=== PATIENT | male | born 1960 | race Caucasian/White ===

== ENCOUNTER 2017-05-11 23:34 | Inpatient (IN) | payer MEDICARE, MEDICAID ==
[2017-05-12 00:22] LABS: URINE MICROSCOPIC INDICATED? YES; URINE SOURCE CLEAN C
[2017-05-12 00:25] LABS: % BASOPHILS 1.1 % (0.0-2.0); % EOSINOPHILS 0.1 % (0.0-5.0); % LYMPHOCYTES 34.1 % (20.0-50.0); % MONOCYTES 6.8 % (2.0-10.0); % NEUTROPHILS 57.9 % (40.0-80.0); BASOPHILE ABSOLUTE 0.1 Th/cumm (0-0.2); HEMATOCRIT 44.8 % (41.0-60); HEMOGLOBIN 14.9 gm/dL (12-16); MEAN CELL VOLUME 93.8 fl (80-99); MEAN CORPUSCULAR HEMOGLOBIN 31.1 pg (26.0-30.0); MEAN CORPUSCULAR HGB CONC 33.2 pg (28.0-36.0); MEAN PLATELET VOLUME 6.3 fl; MONOCYTE ABSOLUTE 0.6 Th/cmm (0.3-1.0); NEUTROPHILE ABSOLUTE 5.1 Th/cmm (1.8-8.0); RED BLOOD COUNT 4.77 Mil/cmm (4.30-5.70); RED CELL DISTRIBUTION WIDTH 12.8 % (11.5-20.0); URINE BILIRUBIN NEGATIVE (NEGATIVE); URINE BLOOD TRACE (NEGATIVE); URINE GLUCOSE (UA) NEGATIVE (NEGATIVE); URINE KETONE NEGATIVE (NEGATIVE); URINE LEUKOCYTE ESTERASE NEGATIVE (NEGATIVE); URINE NITRATE NEGATIVE (NEGATIVE); URINE PH 7.5 (4.6 - 8.0); URINE PROTEIN NEGATIVE (NEGATIVE); URINE UROBILINOGEN 0.2 E.U./dL (0.2 - 1.0); WHITE BLOOD COUNT 8.8 Th/cmm (4.8-10.8)
[2017-05-12 00:30] LABS: PLATELET COUNT 297 Th/cmm (150-400); URINE CLARITY CLEAR (CLEAR); URINE COLOR YELLOW
[2017-05-12 00:37] LABS: AMPHETAMINE URINE NEGATIVE (NEGATIVE); BARBITURATES URINE NEGATIVE (NEGATIVE); BENZODIAZEPINES QUAL URINE NEGATIVE (NEGATIVE); CANNABINOID THC NEGATIVE (NEGATIVE); COCAINE METABOLITE QUAL URINE NEGATIVE (NEGATIVE); METHADONE URINE NEGATIVE (NEGATIVE); METHAMPHETAMINES QUAL URINE NEGATIVE (NEGATIVE); OPIATES (MORPHINE) QUAL. URINE NEGATIVE (NEGATIVE); PHENCYCLIDINE (PCP) URINE NEGATIVE (NEGATIVE); TRICYCLICS (TCA) QUAL. URINE NEGATIVE (NEGATIVE)
[2017-05-12 00:39] LABS: URINE BACTERIA OCCASIONAL /hpf (NONE SEEN); URINE EPITHELIAL CELLS OCCASIONAL /lpf (FEW); URINE WBC 0-2 /hpf (0-5)
[2017-05-12 00:43] LABS: ACETAMINOPHEN < 10.0 ug/mL (10.0-30.0); ALB/GLOB RATIO 1.1 (1.0-1.8); ALBUMIN 3.6 gm/dL (4.2-5.5); ALKALINE PHOSPHATASE 81 U/L (34-104); ANION GAP 10.4 (7.0-16.0); BILIRUBIN,TOTAL 0.2 mg/dL (0.3-1.0); BUN - UREA NITROGEN 9 mg/dL (7-25); CALCIUM SERUM 9.5 mg/dL (8.6-10.3); CARBON DIOXIDE 30.3 mEq/L (21.0-31.0); CHLORIDE 96 mEq/L (98-107); CHOLESTEROL 133 mg/dL (<200); CREATININE - SERUM 0.6 mg/dL (0.7-1.3); GFR AFRICAN-AMERICAN > 60.0 ml/min (>90); GFR NON AFRICAN-AMERICAN > 60.0 ml/min; GLUCOSE 124 mg/dL (70-105); HDL -HIGH DENSITY LIPOPROTEIN 57 mg/dL (23-92); POTASSIUM SERUM 4.7 mEq/L (3.5-5.1); SGOT 13 U/L (13-39); SGPT/ALT 15 U/L (7-52); SODIUM SERUM 132 mEq/L (136-145); TOTAL PROTEIN,SERUM 6.8 gm/dL (6.0-8.3); TRIGLYCERIDES 106 mg/dL (<150)
[2017-05-12 00:45] LABS: SALICYLATES (ASPIRIN) < 25.0 mg/L (30.0-100.0)
--- NOTE | 2017-05-12 01:48 | ED Physician Chart ---
ED Chief Complaint/HPI - Patient Information Date Seen:: 05/11/17 Time Seen:: 23:30 Chief Complaint:: Agitation History of Present Illness:: onset x 2 days of agitation and aggressive behavior; no report of SIs, H/As, neck pain, C/P, SOB, Abd. Pain, A/N/V/D/C, fever, chills, or urinary s/s Allergies:: Allergies Allergy/AdvReac Type Severity Reaction Status Date / Time No Known Allergies Allergy Verified 05/12/17 00:06 Vitals:: Vital Signs - 8 hr 05/11/17 23:35 Temp 97.9 F HR 79 RR 18 BP 121/76 O2 Sat % 94 Historian:: Patient, EMS Review:: Nurse's Note Reviewed, EMS run form Reviewed ED Review of Systems - Review of Systems General/Constitutional: No fever, No chills, No weight loss, No weakness, No diaphoresis, No edema, No loss of appetite Skin: No skin lesions, No rash, No bruising Head: No headache, No light-headedness Eyes: No loss of vision, No pain, No diplopia ENT: No earache, No nasal drainage, No sore throat, No tinnitus Neck: No neck pain, No swelling, No thyromegaly, No stiffness, No mass noted Cardio Vascular: No chest pain, No palpitations, No PND, No orthopnea, No edema Pulmonary: No SOB, No cough, No sputum, No wheezing GI: No nausea, No vomiting, No diarrhea, No pain, No melena, No hematochezia, No constipation, No hematemesis G/U: No dysuria, No frequency, No hematuria, No nacturia Musculoskeletal: No bone or joint pain, No back pain, No muscle pain Endocrine: No polyuria, No polydipsia Psychiatric: Prior psych history, No depression, Anxiety, No suicidal ideation, No homicidal ideation, Auditory hallucination, No visual hallucination Hematopoietic: No bruising, No lymphadenopathy Allergic/Immuno: No urticaria, No angioedema Neurological: No syncope, No focal symptoms, No weakness, No paresthesia, No headache, Seizure, No dizziness, No confusion, No vertigo ED Past Medical History - Past Medical History Obtainable: Yes Past Medical History: HTN, Seizures Family History: HTN Social History: Non Smoker, No Alcohol, No Drug Use, Single, Care Facility Surgical History: None Psychiatricy History: Schizophrenia, Bipolar Medication: Reviewed Family Medical History - Family Member Mother History Unknown: Yes ED Physical Exam - Physical Examination General/Constitutional: Awake, Well-developed, well-nourished, Alert, No distress, GCS 15, Non-toxic appearing, Ambulatory Head: Atraumatic Eyes: Lids, conjuctiva normal, PERRL, EOMI Skin: Nl inspection, No rash, No skin lesions, No ecchymosis, Well hydrated, No lymphadenopathy ENMT: External ears, nose nl, TM canals nl, Nasal exam nl, Lips, teeth, gums nl , Oropharynx nl, Tonsils nl Neck: Nontender, Full ROM w/o pain, No JVD, No nuchal rigidity, No bruit, No mass, No stridor Respiratory: Nl effort/Exclusion, Clear to Auscultation, No Wheeze/Rhonchi/Rales Cardio Vascular: RRR, No murmur, gallop, rubs, NL S1 S2, Carotid/Femoral/Distal pulses equal bilaterally GI: No tenderness/rebounding/guarding, No organomegaly, No hernia, Normal BS's, Nondistended, No mass/bruits, No McBurney tenderness : No CVA tenderness Extremities: No tenderness or effusion, Full ROM, normal strength in all extremities, No edema, Normal digits & nails Neuro/Psych: Alert/oriented, DTR's symmetric, Normal sensory exam, Normal motor strength, Judgement/insight normal, Mood normal, Normal gait, No focal deficits Other Neuro/Psych comments:: + Psychomotor Agitation; no SIs Misc: Normal back, No paraspinal tenderness ED Labs/Radiology/EKG Results - Lab Results Results: Laboratory Tests 05/12/17 05/12/17 05/12/17 00:10 00:10 00:10 WBC 8.8 RBC 4.77 Hgb 14.9 Hct 44.8 MCV 93.8 MCH 31.1 H MCHC Differential 33.2 RDW 12.8 Plt Count 297 D MPV 6.3 Neutrophils % 57.9 Lymphocytes % 34.1 Monocytes % 6.8 Eosinophils % 0.1 Basophils % 1.1 Sodium 132 L Potassium 4.7 Chloride 96 L Carbon Dioxide 30.3 Anion Gap 10.4 BUN 9 Creatinine 0.6 L Est GFR ( Amer) > 60.0 Est GFR (Non-Af Amer) > 60.0 BUN/Creatinine Ratio 15.0 Glucose 124 H Calcium 9.5 Total Bilirubin 0.2 L AST 13 ALT 15 Alkaline Phosphatase 81 Total Protein 6.8 Albumin 3.6 L Globulin 3.2 Albumin/Globulin Ratio 1.1 Triglycerides 106 Cholesterol 133 LDL Cholesterol Direct 82 HDL Cholesterol 57 Urine Source CLEAN C Urine Color YELLOW Urine Clarity CLEAR Urine pH 7.5 Ur Specific [place] <= 1.005 Urine Protein NEGATIVE Urine Glucose (UA) NEGATIVE Urine Ketones NEGATIVE Urine Blood TRACE Urine Nitrate NEGATIVE Urine Bilirubin NEGATIVE Urine Urobilinogen 0.2 Ur Leukocyte Esterase NEGATIVE Urine RBC 2-5 H Urine WBC 0-2 Ur Epithelial Cells OCCASIONAL Urine Bacteria OCCASIONAL Salicylates < 25.0 L Urine Opiates Screen Urine Methadone Screen Acetaminophen < 10.0 L Ur Barbiturates Screen Ur Tricyclics Screen Ur Phencyclidine Scrn Amphetamines Screen U Methamphetamines Scrn U Benzodiazepines Scrn U Cocaine Metab Screen U Cannabinoids Screen Ethyl Alcohol < 10 05/12/17 00:10 WBC RBC Hgb Hct MCV MCH MCHC Differential RDW Plt Count MPV Neutrophils % Lymphocytes % Monocytes % Eosinophils % Basophils % Sodium Potassium Chloride Carbon Dioxide Anion Gap BUN Creatinine Est GFR ( Amer) Est GFR (Non-Af Amer) BUN/Creatinine Ratio Glucose Calcium Total Bilirubin AST ALT Alkaline Phosphatase Total Protein Albumin Globulin Albumin/Globulin Ratio Triglycerides Cholesterol LDL Cholesterol Direct HDL Cholesterol Urine Source Urine Color Urine Clarity Urine pH Ur Specific [place] Urine Protein Urine Glucose (UA) Urine Ketones Urine Blood Urine Nitrate Urine Bilirubin Urine Urobilinogen Ur Leukocyte Esterase Urine RBC Urine WBC Ur Epithelial Cells Urine Bacteria Salicylates Urine Opiates Screen NEGATIVE Urine Methadone Screen NEGATIVE Acetaminophen Ur Barbiturates Screen NEGATIVE Ur Tricyclics Screen NEGATIVE Ur Phencyclidine Scrn NEGATIVE Amphetamines Screen NEGATIVE U Methamphetamines Scrn NEGATIVE U Benzodiazepines Scrn NEGATIVE U Cocaine Metab Screen NEGATIVE U Cannabinoids Screen NEGATIVE Ethyl Alcohol - EKG Interpretations EKG Time:: 00:09 Rate & Rhythm: 85; NSR Comments:: non-specific st-t changes ED Septic Shock - . Is Septic Shock (SBP<90, OR Lactate>4 mmol\L) present?: No - <6hrs of presentation: Vital Signs: Vital Signs - 8 hr 05/11/17 23:35 Temp 97.9 F HR 79 RR 18 BP 121/76 O2 Sat % 94 ED Reassessment (Disposition) - Reassessment Reassessment Condition:: Improved - Diagnosis Diagnosis:: Agitation; Bipolar Disorder; Hyponatremia; Schizophrenia; Epilepsy - Aftercare/Follow up Instructions Aftercare/Follow-Up Instructions:: Counseled pt regarding lab results/diagnosis & need follow up, Counseled pt & family regarding lab results/diagnosis & need follow up - Patient Disposition Discharge/Transfer:: Acute Care w/in this hosp Accepting Physician:: Dr. Busch Time Called:: 119 Time Responded:: 01:20 Admitted to:: Med/Surg Spoke to:: Dr. Busch Admitting Medical Physician:: Dr. Busch Condition at Disposition:: Stable, Improved
[2017-05-12 03:15] VITALS: BP 125/73
[2017-05-12] MEDS ORDERED: Fleet Enema 135 mL RC PRN (06:43)
[2017-05-12] MEDS ORDERED: [UNRECOGNIZED DRUG - OTHER] PO PRN (06:43)
[2017-05-12] MEDS ORDERED: Maalox 30 mL Cup PO PRN (06:43)
[2017-05-12] MEDS ORDERED: ALUMINUM HYDROXIDE PO PRN (06:43)
[2017-05-12] MEDS ORDERED: Aluminum Hydroxide 30 mL UDC PO PRN (08:40)
[2017-05-12] MEDS: risperiDONE 1 mg/mL 30 mL Bottle PO SCH ×2 (09:00→17:38)
[2017-05-12] MEDS ORDERED: Non-Formulary Item 1 EA (Docusate Calcium [Docusate Calcium] 240 MG) PO SCH (09:00)
[2017-05-12] MEDS: Multivitamin Tab PO SCH (11:09)
[2017-05-12] MEDS: Nicotine 21 mg/24 hr Tdm TD SCH (11:09)
[2017-05-13 05:42] LABS: % BASOPHILS 2.8 % (0.0-2.0); % EOSINOPHILS 0.2 % (0.0-5.0); % LYMPHOCYTES 29.2 % (20.0-50.0); % MONOCYTES 7.2 % (2.0-10.0); % NEUTROPHILS 60.6 % (40.0-80.0); BASOPHILE ABSOLUTE 0.3 Th/cumm (0-0.2); HEMATOCRIT 46.5 % (41.0-60); HEMOGLOBIN 15.3 gm/dL (12-16); LYMPHOCYTE ABSOLUTE 2.7 Th/cmm (1.5-3.0); MEAN CELL VOLUME 93.9 fl (80-99); MEAN CORPUSCULAR HEMOGLOBIN 30.9 pg (26.0-30.0); MEAN CORPUSCULAR HGB CONC 32.9 pg (28.0-36.0); MEAN PLATELET VOLUME 6.7 fl; MONOCYTE ABSOLUTE 0.7 Th/cmm (0.3-1.0); NEUTROPHILE ABSOLUTE 5.6 Th/cmm (1.8-8.0); PLATELET COUNT 279 Th/cmm (150-400); RED BLOOD COUNT 4.96 Mil/cmm (4.30-5.70); RED CELL DISTRIBUTION WIDTH 12.9 % (11.5-20.0); WHITE BLOOD COUNT 9.3 Th/cmm (4.8-10.8)
[2017-05-13 06:07] LABS: ALB/GLOB RATIO 1.1 (1.0-1.8); ALBUMIN 3.5 gm/dL (4.2-5.5); ALKALINE PHOSPHATASE 96 U/L (34-104); BILIRUBIN,TOTAL 0.2 mg/dL (0.3-1.0); BUN - UREA NITROGEN 11 mg/dL (7-25); CALCIUM SERUM 9.5 mg/dL (8.6-10.3); CARBON DIOXIDE 29.9 mEq/L (21.0-31.0); CHLORIDE 98 mEq/L (98-107); CREATININE - SERUM 0.8 mg/dL (0.7-1.3); GFR AFRICAN-AMERICAN > 60.0 ml/min (>90); GFR NON AFRICAN-AMERICAN > 60.0 ml/min; GLUCOSE 99 mg/dL (70-105); POTASSIUM SERUM 4.9 mEq/L (3.5-5.1); SGOT 17 U/L (13-39); SGPT/ALT 17 U/L (7-52); SODIUM SERUM 134 mEq/L (136-145); TOTAL PROTEIN,SERUM 6.8 gm/dL (6.0-8.3)
[2017-05-13] MEDS: risperiDONE 1 mg/mL 30 mL Bottle PO SCH (08:49)
[2017-05-13] MEDS: Nicotine 21 mg/24 hr Tdm TD SCH (08:49)
[2017-05-13] MEDS: Multivitamin Tab PO SCH (08:50)
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
[2017-05-13 19:19] LABS: A1C % 5.8 % (4.0-6.0)
== END 2017-05-13 15:49 | DRG 641 ==
LOC: ER 23:34 → MSI 05-12 01:20
PROVIDERS: ADMIT Internal Medicine; ATTEND Internal Medicine
DX: E87.1 Hypo-osmolality and hyponatremia (principal); F20.9 Schizophrenia, unspecified; R41.82 Altered mental status, unspecified; G40.909 Epilepsy, unspecified, not intractable, without status epilepticus; I10 Essential (primary) hypertension; F31.9 Bipolar disorder, unspecified
CPT/HCPCS: 36415-UA; 80053-TC; 80061-TC; 80164-TC; 80307; 80320-TC; 80329-TC; 81001-TC; 83036-90; 84443-TC; 84484-TC; 85025-TC; 86592-TC; 93005; Z7610

== ENCOUNTER 2017-05-13 15:59 | Inpatient (IN) | payer MEDICARE, MEDICAID ==
[2017-05-13 16:24] VITALS: BP 135/75
[2017-05-13] MEDS ORDERED: Maalox 30 mL Cup PO PRN ×2 (16:26→18:44)
[2017-05-13] MEDS ORDERED: Magnesium Hydroxide (MOM) 30 mL UDC PO PRN (16:26)
[2017-05-13] MEDS ORDERED: Fleet Enema 135 mL RC PRN (18:44)
[2017-05-13] MEDS ORDERED: Aluminum Hydroxide 30 mL UDC PO PRN (18:44)
[2017-05-13] MEDS ORDERED: chlorproMAZINE 25 mg/mL 2mL Amp ONE (19:22)
[2017-05-13] MEDS ORDERED: chlorproMAZINE 25 mg/mL 2mL Amp IM STA (19:22)
[2017-05-14] MEDS: risperiDONE 1 mg/mL 30 mL Bottle PO SCH ×2 (08:35→16:37)
[2017-05-14] MEDS: Nicotine 21 mg/24 hr Tdm TD SCH (08:35)
[2017-05-14] MEDS: Multivitamin Tab PO SCH (09:01)
--- NOTE | 2017-05-14 09:10 | History & Physical ---
ADMIT DATE: 05/13/2017 CHIEF COMPLAINT: Agitation. HISTORY OF PRESENT ILLNESS: This is a 56-year-old male who was originally admitted to the Med-Surg Unit from intermediate facility due to agitation. Otherwise, Once medically cleared, the patient was transferred and admitted to the psychiatric unit for stabilization. REVIEW OF SYSTEMS: CONSTITUTIONAL: This is a 56-year-old male, who appears as stated generalized. No fever. No chills. HEENT: No headache. No dizziness. EYES: No eye pain, no blurring of vision. NECK: No neck pain, no nuchal rigidity. No chest pain. No palpitation. PULMONARY: No shortness of breath, no coughing. GASTROINTESTINAL: No abdominal pain, no diarrhea. No constipation. MUSCULOSKELETAL: No clubbing. No cyanosis. SOCIAL HISTORY: The patient lives in a intermediate facility prior to hospitalization. PAST MEDICAL HISTORY: Include seizure and hypertension. FAMILY HISTORY: Unremarkable. PAST SURGICAL HISTORY: The patient has colostomy. PHYSICAL EXAMINATION: VITAL SIGNS: Temperature 98.1, heart rate 92, blood pressure 135/75, respirations 20, and 97% on room air. HEENT: Head is atraumatic, normocephalic. Eyes: Bilateral conjunctivae are clear. Bilateral pupils are equally round and reactive. NECK: Supple. No JVD. CARDIOVASCULAR: S1 and S2, without murmur. LUNGS: Clear to auscultation. GASTROINTESTINAL: Soft and nontender without guarding. Positive bowel sounds. He has a colostomy. MUSCULOSKELETAL: No clubbing. No cyanosis noted. ASSESSMENT: 1. Psychosis. 2. Anemia. 3. Hypertension. 4. Seizure. 5. Anxiety. 6. Nicotine dependence. PLAN: We will keep the patient in inpatient Psychiatric Unit. We will follow up with a psychiatrist to monitor the patient's condition and behavior. We are also going to monitor the patient's nutritional status. Treatment plans were discussed with the patient's nurse. Treatment plans were discussed with Dr Busch. JOB# [id number]
[2017-05-14] MEDS ORDERED: Haloperidol Lactate 5 mg/mL 1mL Vial ONE (13:43)
[2017-05-14] MEDS ORDERED: Haloperidol Lactate 5 mg/mL 1mL Vial IM ONE (13:45)
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
[2017-05-15] MEDS: risperiDONE 1 mg/mL 30 mL Bottle PO SCH ×2 (09:46→17:26)
[2017-05-15] MEDS: Multivitamin Tab PO SCH (09:46)
[2017-05-15] MEDS: Nicotine 21 mg/24 hr Tdm TD SCH (09:46)
--- NOTE | 2017-05-15 13:44 | Internal Medicine Prog Note ---
Internal Medicine Subjective - Subjective Service Date: 05/15/17 Patient seen and examined:: with staff Patient is:: awake, verbal Per staff patient has:: tolerating meds Internal Medicine Objective - Physical Exam Vitals and I&O: Vital Signs Temp 98.1 F 05/14/17 20:36 Pulse 80 05/15/17 09:46 Resp 19 05/14/17 20:36 BP 106/64 05/15/17 09:46 Pulse Ox 97 05/14/17 20:36 Intake & Output 05/14/17 05/15/17 05/15/17 18:59 06:59 18:59 Intake Total 1200 480 Output Total 3 Balance 1197 480 Intake: Oral 1200 480 Output: Urine 3 Other: # Voids 2 # Bowel Movements 1 Stool Characteristics Soft Active Medications: Current Medications Acetaminophen (Tylenol) 650 mg PO Q4H PRN PRN Reason: Mild Pain/Headache/T above 101 Stop: 07/12/17 16:25 Last Admin: 05/15/17 10:50 Dose: 650 mg Al Hydrox/Mg Hydrox/Simethicone (Maalox) 30 ml PO DAILY PRN PRN Reason: GI DISTRESS Stop: 07/12/17 18:43 Aluminum Hydroxide (Amphojel) 30 ml PO BID PRN PRN Reason: UPSET STOMACH Stop: 07/12/17 18:43 Docusate Sodium (Colace) 250 mg PO DAILY [facility] Stop: 07/13/17 08:59 Last Admin: 05/15/17 09:46 Dose: 250 mg Folic Acid (Folate) 1 mg PO DAILY [facility] Stop: 07/13/17 08:59 Last Admin: 05/15/17 09:45 Dose: 1 mg Haloperidol (Haldol) 5 mg PO Q6HR PRN; Protocol PRN Reason: Agitation Stop: 07/12/17 18:43 Last Admin: 05/15/17 09:46 Dose: 5 mg Lorazepam (Ativan) 0.5 mg PO Q4H PRN; Protocol PRN Reason: Anxiety/Agitation Stop: 07/12/17 16:25 Last Admin: 05/15/17 09:46 Dose: 0.5 mg Magnesium Hydroxide (Milk Of Magnesia) 30 ml PO DAILY PRN PRN Reason: Constipation Stop: 07/12/17 16:25 Last Admin: 05/14/17 23:43 Dose: 30 ml Metoprolol Tartrate (Lopressor) 50 mg PO BID [facility] Stop: 07/13/17 08:59 Last Admin: 05/15/17 09:46 Dose: Not Given Multivitamins/Vitamin C (Theragran) 1 tab PO DAILY [facility] Stop: 07/13/17 08:59 Last Admin: 05/15/17 09:46 Dose: 1 tab Nicotine (Nicotine Transdermal System) 21 mg TD DAILY [facility] Stop: 07/13/17 08:59 Last Admin: 05/15/17 09:46 Dose: 21 mg Ondansetron HCl (Zofran Odt) 4 mg PO Q6H PRN PRN Reason: Nausea / Vomiting Stop: 07/14/17 00:03 Last Admin: 05/15/17 00:41 Dose: 4 mg Psyllium Hydrophilic Mucilloid (Metamucil) 1 pkt PO BID [facility] Stop: 07/13/17 08:59 Last Admin: 05/15/17 09:46 Dose: 1 pkt Risperidone (Risperdal) 3 mg PO BID [facility] PRN Reason: Protocol Stop: 07/13/17 08:59 Last Admin: 05/15/17 09:46 Dose: 3 mg Sodium Phosphate (Fleet Enema) 135 ml RC PRN PRN PRN Reason: Constipation Stop: 07/12/17 18:43 Trazodone HCl (Desyrel) 25 mg PO HS PRN; Protocol PRN Reason: Insomnia Stop: 07/12/17 18:43 Valproate Sodium (Depakene) 750 mg PO Q12H [facility] PRN Reason: Protocol Stop: 07/12/17 18:44 Last Admin: 05/14/17 08:35 Dose: Not Given Zolpidem Tartrate (Ambien) 5 mg PO HS PRN PRN Reason: Insomnia Stop: 07/12/17 16:25 Last Admin: 05/14/17 21:14 Dose: 5 mg General: alert HEENT: NC/AT, PERRLA Neck: Supple Lungs: CTAB Cardiovascular: RRR, Normal S1, Normal S2 Abdomen: soft, non-tender Neurological: alert Internal Medicine Assmt/Plan - Assessment Assessment: psychosis anemia htn seizure anxiety nicotine abuse - Plan Plan: smoking cessation continue current orders
--- NOTE | 2017-05-15 21:26 | Progress Notes ---
DATE: SUBJECTIVE: The patient seen, chart reviewed, and discussed with staff. The patient continues to be very combative, aggressive, requiring numerous redirections; however, he did not require any p.r.n. medications and according to staff, has been calmer since being placed on a 1:1 observation. During questioning, the patient was making nonsensical comments stating, "I use a condom." He has been compliant with his medications, denying any undue side effects. PLAN: The patient continues to be actively psychotic, unpredictable. It was felt that he will require continued inpatient care for stabilization and treatment. We will monitor patient on a daily basis for response to medication and titrate medications as needed. [facility]# [id number]
--- NOTE | 2017-05-16 09:20 | General Progress Note ---
Subjective - Review of Systems Events since last encounter: patient irritable aggressive no signs of pain Objective - Physical Exam Vitals and I&O: Vital Signs Temp 97.8 F 05/15/17 20:00 Pulse 100 05/15/17 20:00 Resp 19 05/15/17 20:00 BP 119/74 05/15/17 20:00 Pulse Ox 97 05/15/17 14:40 Intake & Output 05/15/17 05/16/17 05/16/17 18:59 06:59 18:59 Intake Total 1200 480 Balance 1200 480 Intake: Oral 1200 480 Other: # Voids 4 3 Stool Characteristics Soft Foamy Active Medications: Current Medications Acetaminophen (Tylenol) 650 mg PO Q4H PRN PRN Reason: Mild Pain/Headache/T above 101 Stop: 07/12/17 16:25 Last Admin: 05/16/17 02:20 Dose: 650 mg Al Hydrox/Mg Hydrox/Simethicone (Maalox) 30 ml PO DAILY PRN PRN Reason: GI DISTRESS Stop: 07/12/17 18:43 Aluminum Hydroxide (Amphojel) 30 ml PO BID PRN PRN Reason: UPSET STOMACH Stop: 07/12/17 18:43 Docusate Sodium (Colace) 250 mg PO DAILY [facility] Stop: 07/13/17 08:59 Last Admin: 05/15/17 09:46 Dose: 250 mg Folic Acid (Folate) 1 mg PO DAILY [facility] Stop: 07/13/17 08:59 Last Admin: 05/15/17 09:45 Dose: 1 mg Haloperidol (Haldol) 5 mg PO Q6HR PRN; Protocol PRN Reason: Agitation Stop: 07/12/17 18:43 Last Admin: 05/15/17 09:46 Dose: 5 mg Lorazepam (Ativan) 0.5 mg PO Q4H PRN; Protocol PRN Reason: Anxiety/Agitation Stop: 07/12/17 16:25 Last Admin: 05/15/17 09:46 Dose: 0.5 mg Magnesium Hydroxide (Milk Of Magnesia) 30 ml PO DAILY PRN PRN Reason: Constipation Stop: 07/12/17 16:25 Last Admin: 05/14/17 23:43 Dose: 30 ml Metoprolol Tartrate (Lopressor) 50 mg PO BID [facility] Stop: 07/13/17 08:59 Last Admin: 05/15/17 17:20 Dose: Not Given Multivitamins/Vitamin C (Theragran) 1 tab PO DAILY [facility] Stop: 07/13/17 08:59 Last Admin: 05/15/17 09:46 Dose: 1 tab Nicotine (Nicotine Transdermal System) 21 mg TD DAILY [facility] Stop: 07/13/17 08:59 Last Admin: 05/15/17 09:46 Dose: 21 mg Ondansetron HCl (Zofran Odt) 4 mg PO Q6H PRN PRN Reason: Nausea / Vomiting Stop: 07/14/17 00:03 Last Admin: 05/15/17 00:41 Dose: 4 mg Psyllium Hydrophilic Mucilloid (Metamucil) 1 pkt PO BID [facility] Stop: 07/13/17 08:59 Last Admin: 05/15/17 17:26 Dose: 1 pkt Quetiapine Fumarate (Seroquel) 50 mg PO TID [facility] PRN Reason: Protocol Stop: 07/15/17 08:59 Risperidone (Risperdal) 3 mg PO BID [facility] PRN Reason: Protocol Stop: 07/13/17 08:59 Last Admin: 05/15/17 17:26 Dose: 3 mg Sodium Phosphate (Fleet Enema) 135 ml RC PRN PRN PRN Reason: Constipation Stop: 07/12/17 18:43 Trazodone HCl (Desyrel) 25 mg PO HS PRN; Protocol PRN Reason: Insomnia Stop: 07/12/17 18:43 Valproate Sodium (Depakene) 750 mg PO Q12H [facility] PRN Reason: Protocol Stop: 07/12/17 18:44 Last Admin: 05/16/17 06:45 Dose: 750 mg Zolpidem Tartrate (Ambien) 5 mg PO HS PRN PRN Reason: Insomnia Stop: 07/12/17 16:25 Last Admin: 05/16/17 01:50 Dose: 5 mg Assessment/Plan - Problem List Patient Problems: All Active Problems Aggression (Acute) R45.89 Confusion (Acute) R41.0 HTN (hypertension) (Acute) I10
[2017-05-16] MEDS: Nicotine 21 mg/24 hr Tdm TD SCH (09:43)
[2017-05-16] MEDS: Multivitamin Tab PO SCH (09:43)
[2017-05-16] MEDS: risperiDONE 1 mg/mL 30 mL Bottle PO SCH ×2 (09:45→16:40)
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
--- NOTE | 2017-05-17 07:15 | Progress Notes ---
DATE: SUBJECTIVE: Chart reviewed and the patient interviewed. Also discussed the patient's condition with the staff and reviewed records and labs. The patient is calmer. He is less agitated and less irritable. The patient also is interacting slightly more today and he seems to be less agitated. He still needs redirections, but slightly easier to redirect him. The patient also has been more compliant with taking his medications with no side effects. Also, decreased behavioral problems, especially throwing his colostomy bag on his room and dirtying the whole place, seems to be less than before. Also, he denies any side effects of medications. ASSESSMENT: The patient is still irritable, but showing some improvement. TREATMENT PLAN: Continue monitoring his behavior. Also, continue working on his irritability and his anger and adjusting psychotropic medications and follow up. JOB# [id number]
[2017-05-17] MEDS: Multivitamin Tab PO SCH (09:25)
[2017-05-17] MEDS: Nicotine 21 mg/24 hr Tdm TD SCH (09:26)
[2017-05-17] MEDS: risperiDONE 1 mg/mL 30 mL Bottle PO SCH ×2 (09:33→17:54)
--- NOTE | 2017-05-17 15:23 | General Progress Note ---
Subjective - Review of Systems Events since last encounter: a little less irritable improving Objective - Physical Exam Vitals and I&O: Vital Signs Temp 97.6 F 05/16/17 14:30 Pulse 75 05/17/17 09:24 Resp 19 05/16/17 14:30 BP 122/79 05/17/17 09:24 Pulse Ox 97 05/16/17 14:30 Intake & Output 05/16/1718 05/17/17 18:59 06:59 18:59 Intake Total 250 Balance 250 Intake: Oral 250 Active Medications: Current Medications Acetaminophen (Tylenol) 650 mg PO Q4H PRN PRN Reason: Mild Pain/Headache/T above 101 Stop: 07/12/17 16:25 Last Admin: 05/17/17 09:20 Dose: 650 mg Al Hydrox/Mg Hydrox/Simethicone (Maalox) 30 ml PO DAILY PRN PRN Reason: GI DISTRESS Stop: 07/12/17 18:43 Docusate Sodium (Colace) 250 mg PO DAILY [facility] Stop: 07/13/17 08:59 Last Admin: 05/17/17 09:22 Dose: 250 mg Folic Acid (Folate) 1 mg PO DAILY [facility] Stop: 07/13/17 08:59 Last Admin: 05/17/17 09:22 Dose: 1 mg Haloperidol (Haldol) 5 mg PO Q6HR PRN; Protocol PRN Reason: Agitation Stop: 07/12/17 18:43 Last Admin: 05/16/17 16:40 Dose: 5 mg Lorazepam (Ativan) 0.5 mg PO Q4H PRN; Protocol PRN Reason: Anxiety/Agitation Stop: 07/12/17 16:25 Last Admin: 05/17/17 10:46 Dose: 0.5 mg Magnesium Hydroxide (Milk Of Magnesia) 30 ml PO DAILY PRN PRN Reason: Constipation Stop: 07/12/17 16:25 Last Admin: 05/14/17 23:43 Dose: 30 ml Metoprolol Tartrate (Lopressor) 50 mg PO BID [facility] Stop: 07/13/17 08:59 Last Admin: 05/17/17 09:24 Dose: 50 mg Multivitamins/Vitamin C (Theragran) 1 tab PO DAILY [facility] Stop: 07/13/17 08:59 Last Admin: 05/17/17 09:25 Dose: 1 tab Nicotine (Nicotine Transdermal System) 21 mg TD DAILY [facility] Stop: 07/13/17 08:59 Last Admin: 05/17/17 09:26 Dose: Not Given Ondansetron HCl (Zofran Odt) 4 mg PO Q6H PRN PRN Reason: Nausea / Vomiting Stop: 07/14/17 00:03 Last Admin: 05/15/17 00:41 Dose: 4 mg Psyllium Hydrophilic Mucilloid (Metamucil) 1 pkt PO BID [facility] Stop: 07/13/17 08:59 Last Admin: 05/17/17 09:26 Dose: 1 pkt Quetiapine Fumarate (Seroquel) 75 mg PO TID [facility] PRN Reason: Protocol Stop: 07/16/17 08:59 Last Admin: 05/17/17 14:02 Dose: 75 mg Risperidone (Risperdal) 3 mg PO BID [facility] PRN Reason: Protocol Stop: 07/13/17 08:59 Last Admin: 05/17/17 09:33 Dose: 3 mg Sodium Phosphate (Fleet Enema) 135 ml RC PRN PRN PRN Reason: Constipation Stop: 07/12/17 18:43 Trazodone HCl (Desyrel) 25 mg PO HS PRN; Protocol PRN Reason: Insomnia Stop: 07/12/17 18:43 Valproate Sodium (Depakene) 750 mg PO Q12H [facility] PRN Reason: Protocol Stop: 07/12/17 18:44 Last Admin: 05/17/17 09:21 Dose: 750 mg Zolpidem Tartrate (Ambien) 5 mg PO HS PRN PRN Reason: Insomnia Stop: 07/12/17 16:25 Last Admin: 05/16/17 21:50 Dose: 5 mg Assessment/Plan - Problem List Patient Problems: All Active Problems Aggression (Acute) R45.89 Confusion (Acute) R41.0 HTN (hypertension) (Acute) I10
[2017-05-17] MEDS ORDERED: Haloperidol Lactate 5 mg/mL 1mL Vial IM ONE (21:10)
[2017-05-18] MEDS: Multivitamin Tab PO SCH (09:20)
[2017-05-18] MEDS: Nicotine 21 mg/24 hr Tdm TD SCH (09:21)
[2017-05-18] MEDS: risperiDONE 1 mg/mL 30 mL Bottle PO SCH ×2 (09:22→17:42)
--- NOTE | 2017-05-18 13:55 | Internal Medicine Prog Note ---
Internal Medicine Subjective - Subjective Service Date: 05/18/17 Patient is:: awake, verbal Per staff patient has:: tolerating meds Internal Medicine Objective - Physical Exam Vitals and I&O: Vital Signs Temp 97.4 F 05/18/17 06:20 Pulse 115 05/18/17 09:20 Resp 20 05/18/17 06:20 BP 141/80 05/18/17 09:20 Pulse Ox 98 05/18/17 06:20 Intake & Output 05/17/17 05/18/17 05/18/17 18:59 06:59 18:59 Intake Total 610 Balance 610 Intake: Oral 610 Other: # Voids 2 # Bowel Movements 0 Stool Characteristics Soft Soft Active Medications: Current Medications Acetaminophen (Tylenol) 650 mg PO Q4H PRN PRN Reason: Mild Pain/Headache/T above 101 Stop: 07/12/17 16:25 Last Admin: 05/18/17 11:19 Dose: 650 mg Al Hydrox/Mg Hydrox/Simethicone (Maalox) 30 ml PO DAILY PRN PRN Reason: GI DISTRESS Stop: 07/12/17 18:43 Docusate Sodium (Colace) 250 mg PO DAILY [facility] Stop: 07/13/17 08:59 Last Admin: 05/18/17 09:19 Dose: 250 mg Folic Acid (Folate) 1 mg PO DAILY [facility] Stop: 07/13/17 08:59 Last Admin: 05/18/17 09:19 Dose: 1 mg Haloperidol (Haldol) 5 mg PO Q6HR PRN; Protocol PRN Reason: Agitation Stop: 07/12/17 18:43 Last Admin: 05/16/17 16:40 Dose: 5 mg Lorazepam (Ativan) 0.5 mg PO Q4H PRN; Protocol PRN Reason: Anxiety/Agitation Stop: 07/12/17 16:25 Last Admin: 05/18/17 11:18 Dose: 0.5 mg Magnesium Hydroxide (Milk Of Magnesia) 30 ml PO DAILY PRN PRN Reason: Constipation Stop: 07/12/17 16:25 Last Admin: 05/14/17 23:43 Dose: 30 ml Metoprolol Tartrate (Lopressor) 50 mg PO BID [facility] Stop: 07/13/17 08:59 Last Admin: 05/18/17 09:20 Dose: 50 mg Multivitamins/Vitamin C (Theragran) 1 tab PO DAILY [facility] Stop: 07/13/17 08:59 Last Admin: 05/18/17 09:20 Dose: 1 tab Nicotine (Nicotine Transdermal System) 21 mg TD DAILY [facility] Stop: 07/13/17 08:59 Last Admin: 05/18/17 09:21 Dose: 21 mg Ondansetron HCl (Zofran Odt) 4 mg PO Q6H PRN PRN Reason: Nausea / Vomiting Stop: 07/14/17 00:03 Last Admin: 05/15/17 00:41 Dose: 4 mg Psyllium Hydrophilic Mucilloid (Metamucil) 1 pkt PO BID [facility] Stop: 07/13/17 08:59 Last Admin: 05/18/17 09:21 Dose: 1 pkt Quetiapine Fumarate (Seroquel) 75 mg PO TID [facility] PRN Reason: Protocol Stop: 07/16/17 08:59 Last Admin: 05/18/17 09:19 Dose: 75 mg Risperidone (Risperdal) 3 mg PO BID [facility] PRN Reason: Protocol Stop: 07/13/17 08:59 Last Admin: 05/18/17 09:22 Dose: 3 mg Sodium Phosphate (Fleet Enema) 135 ml RC PRN PRN PRN Reason: Constipation Stop: 07/12/17 18:43 Trazodone HCl (Desyrel) 25 mg PO HS PRN; Protocol PRN Reason: Insomnia Stop: 07/12/17 18:43 Valproate Sodium (Depakene) 750 mg PO Q12H [facility] PRN Reason: Protocol Stop: 07/12/17 18:44 Last Admin: 05/18/17 06:17 Dose: 750 mg Zolpidem Tartrate (Ambien) 5 mg PO HS PRN PRN Reason: Insomnia Stop: 07/12/17 16:25 Last Admin: 05/17/17 20:16 Dose: 5 mg General: alert HEENT: NC/AT, PERRLA Neck: Supple Lungs: CTAB Cardiovascular: RRR, Normal S1, Normal S2 Abdomen: soft, non-tender Neurological: alert Internal Medicine Assmt/Plan - Assessment Assessment: psychosis anemia htn seizure anxiety nicotine abuse - Plan Plan: smoking cessation continue current orders
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
[2017-05-19] MEDS: Multivitamin Tab PO SCH (08:29)
[2017-05-19] MEDS: risperiDONE 1 mg/mL 30 mL Bottle PO SCH ×2 (08:30→17:14)
[2017-05-19] MEDS: Nicotine 21 mg/24 hr Tdm TD SCH (08:31)
[2017-05-19] MEDS ORDERED: Haloperidol Lactate 5 mg/mL 1mL Vial IM ONE (11:15)
[2017-05-19] MEDS ORDERED: Haloperidol Lactate 5 mg/mL 1mL Vial ONE (11:15)
--- NOTE | 2017-05-19 11:29 | General Progress Note ---
Subjective - Review of Systems Events since last encounter: awake verbal in no distress Objective - Physical Exam Vitals and I&O: Vital Signs Temp 97.9 F 05/19/17 06:53 Pulse 114 05/19/17 08:33 Resp 20 05/19/17 06:53 BP 134/75 05/19/17 08:33 Pulse Ox 99 05/19/17 06:53 Intake & Output 05/18/17 05/19/17 05/19/17 18:59 06:59 18:59 Intake Total 1500 120 Balance 1500 120 Intake: Oral 1500 120 Other: # Voids 4 3 Stool Characteristics Soft Soft Active Medications: Current Medications Acetaminophen (Tylenol) 650 mg PO Q4H PRN PRN Reason: Mild Pain/Headache/T above 101 Stop: 07/12/17 16:25 Last Admin: 05/19/17 10:46 Dose: 650 mg Al Hydrox/Mg Hydrox/Simethicone (Maalox) 30 ml PO DAILY PRN PRN Reason: GI DISTRESS Stop: 07/12/17 18:43 Docusate Sodium (Colace) 250 mg PO DAILY [facility] Stop: 07/13/17 08:59 Last Admin: 05/19/17 08:28 Dose: 250 mg Folic Acid (Folate) 1 mg PO DAILY [facility] Stop: 07/13/17 08:59 Last Admin: 05/19/17 08:28 Dose: 1 mg Haloperidol (Haldol) 5 mg PO Q6HR PRN; Protocol PRN Reason: Agitation Stop: 07/12/17 18:43 Last Admin: 05/16/17 16:40 Dose: 5 mg Lorazepam (Ativan) 0.5 mg PO Q4H PRN; Protocol PRN Reason: Anxiety/Agitation Stop: 07/12/17 16:25 Last Admin: 05/18/17 20:15 Dose: 0.5 mg Magnesium Hydroxide (Milk Of Magnesia) 30 ml PO DAILY PRN PRN Reason: Constipation Stop: 07/12/17 16:25 Last Admin: 05/14/17 23:43 Dose: 30 ml Metoprolol Tartrate (Lopressor) 50 mg PO BID [facility] Stop: 07/13/17 08:59 Last Admin: 05/19/17 08:33 Dose: 50 mg Multivitamins/Vitamin C (Theragran) 1 tab PO DAILY [facility] Stop: 07/13/17 08:59 Last Admin: 05/19/17 08:29 Dose: 1 tab Nicotine (Nicotine Transdermal System) 21 mg TD DAILY [facility] Stop: 07/13/17 08:59 Last Admin: 05/19/17 08:31 Dose: Not Given Ondansetron HCl (Zofran Odt) 4 mg PO Q6H PRN PRN Reason: Nausea / Vomiting Stop: 07/14/17 00:03 Last Admin: 05/15/17 00:41 Dose: 4 mg Psyllium Hydrophilic Mucilloid (Metamucil) 1 pkt PO BID [facility] Stop: 07/13/17 08:59 Last Admin: 05/19/17 08:29 Dose: 1 pkt Quetiapine Fumarate (Seroquel) 75 mg PO TID [facility] PRN Reason: Protocol Stop: 07/16/17 08:59 Last Admin: 05/19/17 08:29 Dose: 75 mg Risperidone (Risperdal) 3 mg PO BID [facility] PRN Reason: Protocol Stop: 07/13/17 08:59 Last Admin: 05/19/17 08:30 Dose: 3 mg Sodium Phosphate (Fleet Enema) 135 ml RC PRN PRN PRN Reason: Constipation Stop: 07/12/17 18:43 Trazodone HCl (Desyrel) 25 mg PO HS PRN; Protocol PRN Reason: Insomnia Stop: 07/12/17 18:43 Last Admin: 05/18/17 20:15 Dose: 25 mg Valproate Sodium (Depakene) 750 mg PO Q12H [facility] PRN Reason: Protocol Stop: 07/12/17 18:44 Last Admin: 05/19/17 06:01 Dose: Not Given Zolpidem Tartrate (Ambien) 5 mg PO HS PRN PRN Reason: Insomnia Stop: 07/12/17 16:25 Last Admin: 05/18/17 23:10 Dose: 5 mg Assessment/Plan - Problem List Patient Problems: All Active Problems Aggression (Acute) R45.89 Confusion (Acute) R41.0 HTN (hypertension) (Acute) I10
--- NOTE | 2017-05-19 22:04 | Progress Notes ---
DATE: SUBJECTIVE: Chart reviewed and the patient interviewed. Also discussed the patient's condition with the staff and reviewed records and labs. The patient continued to be demanding and in irritable mood and asking to go to smoke cigarettes all the time. He gets irritable and angry when staff refused his demand and directives at times. Also, continued to be monitored on 1:1 observation because of unpredictable behavior and aggressive behavior and agitation. He also is still very impulsive and he gets violent with the staff. On the other hand, the patient is compliant with taking his medications with no side effect of medications. ASSESSMENT: The patient still can be dangerous to others and still has unpredictable behavior. TREATMENT PLAN: Continue 1:1 observation. Continue to monitor his behavior closely and continue to work on his poor impulse control and continue adjusting psychotropic medications. JOB# [id number]
--- NOTE | 2017-05-20 08:04 | Progress Notes ---
DATE: SUBJECTIVE: Chart reviewed and the patient interviewed. Also discussed the patient's condition with the staff and reviewed records and labs. The patient continued to be anxious and is still extremely irritable and depressed. The patient also has episodes of anger and irritability. The patient also is still suspicious and paranoid. He also gets angry and agitated easily. Otherwise, the patient is compliant with taking his medications with no side effects of medications. ASSESSMENT: The patient is still agitated and psychotic. TREATMENT PLAN: Continue to monitor his behavior and his condition closely. Also, we will increase Seroquel to 100 mg 3 times a day. Also, continue to monitor his agitation and his anger and we will continue to follow up. Also, working on discharge plans and placement issue. JOB# [id number]
[2017-05-20] MEDS: Hydrocodone/APAP 5mg/325mg Tab PO PRN (09:30)
[2017-05-20] MEDS: Nicotine 21 mg/24 hr Tdm TD SCH (09:31)
[2017-05-20] MEDS: Multivitamin Tab PO SCH (09:31)
--- NOTE | 2017-05-20 13:09 | Internal Medicine Prog Note ---
Internal Medicine Subjective - Subjective Service Date: 05/20/17 Patient is:: awake, verbal Per staff patient has:: tolerating meds Internal Medicine Objective - Physical Exam Vitals and I&O: Vital Signs Temp 97.1 F 05/19/17 18:18 Pulse 102 05/20/17 09:31 Resp 20 05/19/17 18:18 BP 138/89 05/20/17 09:31 Pulse Ox 98 05/19/17 18:18 Intake & Output 05/19/17 05/20/17 05/20/17 18:59 06:59 18:59 Intake Total 490 Balance 490 Intake: Oral 490 Other: # Voids 3 # Bowel Movements 0 Stool Characteristics Soft Soft Active Medications: Current Medications Acetaminophen (Tylenol) 650 mg PO Q4H PRN PRN Reason: Mild Pain/Headache/T above 101 Stop: 07/12/17 16:25 Last Admin: 05/19/17 10:46 Dose: 650 mg Acetaminophen/Hydrocodone Bitart ([place] 5mg/325mg) 1 tab PO Q6H PRN PRN Reason: Abdominal Pain Stop: 07/18/17 12:40 Last Admin: 05/20/17 09:30 Dose: 1 tab Al Hydrox/Mg Hydrox/Simethicone (Maalox) 30 ml PO DAILY PRN PRN Reason: GI DISTRESS Stop: 07/12/17 18:43 Docusate Sodium (Colace) 250 mg PO DAILY [facility] Stop: 07/13/17 08:59 Last Admin: 05/20/17 09:30 Dose: 250 mg Folic Acid (Folate) 1 mg PO DAILY [facility] Stop: 07/13/17 08:59 Last Admin: 05/20/17 09:30 Dose: 1 mg Haloperidol (Haldol) 5 mg PO Q6HR PRN; Protocol PRN Reason: Agitation Stop: 07/12/17 18:43 Last Admin: 05/20/17 09:30 Dose: 5 mg Lorazepam (Ativan) 0.5 mg PO Q4H PRN PRN Reason: Anxiety/Agitation Stop: 07/19/17 08:25 Magnesium Hydroxide (Milk Of Magnesia) 30 ml PO DAILY PRN PRN Reason: Constipation Stop: 07/12/17 16:25 Last Admin: 05/14/17 23:43 Dose: 30 ml Metoprolol Tartrate (Lopressor) 50 mg PO BID [facility] Stop: 07/13/17 08:59 Last Admin: 05/20/17 09:31 Dose: 50 mg Multivitamins/Vitamin C (Theragran) 1 tab PO DAILY [facility] Stop: 07/13/17 08:59 Last Admin: 05/20/17 09:31 Dose: 1 tab Nicotine (Nicotine Transdermal System) 21 mg TD DAILY [facility] Stop: 07/13/17 08:59 Last Admin: 05/20/17 09:31 Dose: Not Given Ondansetron HCl (Zofran Odt) 4 mg PO Q6H PRN PRN Reason: Nausea / Vomiting Stop: 07/14/17 00:03 Last Admin: 05/15/17 00:41 Dose: 4 mg Psyllium Hydrophilic Mucilloid (Metamucil) 1 pkt PO BID [facility] Stop: 07/13/17 08:59 Last Admin: 05/20/17 09:32 Dose: 1 pkt Quetiapine Fumarate (Seroquel) 100 mg PO TID [facility] PRN Reason: Protocol Stop: 07/19/17 07:12 Last Admin: 05/20/17 09:32 Dose: 100 mg Risperidone (Risperdal) 3 mg PO BID [facility] Stop: 07/19/17 08:59 Last Admin: 05/20/17 09:30 Dose: 3 mg Sodium Phosphate (Fleet Enema) 135 ml RC PRN PRN PRN Reason: Constipation Stop: 07/12/17 18:43 Trazodone HCl (Desyrel) 25 mg PO HS PRN; Protocol PRN Reason: Insomnia Stop: 07/12/17 18:43 Last Admin: 05/18/17 20:15 Dose: 25 mg Valproate Sodium (Depakene) 750 mg PO Q12H [facility] PRN Reason: Protocol Stop: 07/12/17 18:44 Last Admin: 05/20/17 06:50 Dose: 750 mg Zolpidem Tartrate (Ambien) 5 mg PO HS PRN PRN Reason: Insomnia Stop: 07/12/17 16:25 Last Admin: 05/19/17 20:59 Dose: 5 mg General: alert HEENT: NC/AT, PERRLA Neck: Supple Lungs: CTAB Cardiovascular: RRR, Normal S1, Normal S2 Abdomen: soft, non-tender Neurological: alert Internal Medicine Assmt/Plan - Assessment Assessment: psychosis anemia htn seizure anxiety nicotine abuse - Plan Plan: smoking cessation continue current orders
[2017-05-21] MEDS: Nicotine 21 mg/24 hr Tdm TD SCH (09:37)
[2017-05-21] MEDS: Multivitamin Tab PO SCH (09:37)
--- NOTE | 2017-05-21 18:43 | Progress Notes ---
DATE: 05/21/2017 SUBJECTIVE: The patient was seen in his room. The patient appears to be awake and alert, but easily gets agitated. Otherwise, the patient appears to be in no acute distress. OBJECTIVE: VITAL SIGNS: Temperature 98.7, heart rate 85, blood pressure 130/82, respirations 20, and 98% on room air. HEENT: Head is atraumatic and normocephalic. Eyes: Bilateral conjunctivae are clear. Bilateral pupils are equally round and reactive. NECK: Supple. No JVD. CARDIOVASCULAR: S1 and S2, without murmur. PULMONARY: Clear to auscultation. GASTROINTESTINAL: Soft and nontender without guarding. Positive bowel sounds. The patient has a colostomy. EXTREMITIES: No clubbing or cyanosis noted. ASSESSMENT: 1. Psychosis. 2. Anemia. 3. Hypertension. 4. Seizure. 5. Anxiety. 6. Nicotine dependence. 7. Colostomy. PLAN: We will keep the patient Inpatient Psychiatric Unit for followup with a psychiatrist to monitor the patient's condition and behavior. Treatment plans were discussed with the patient's nurse. Treatment plans were discussed with Dr. Busch. JOB# [id number]
--- NOTE | 2017-05-21 19:20 | Progress Notes ---
DATE: This is Dr. Ortega covering for Dr. Taylor. SUBJECTIVE: Overnight nursing staff reported the patient has been unpredictable needed 1:1 has he becomes extremely impulsive, in the last 24 hours primary psychiatrist had noted that the patient can be demented, irritable and unpredictable behavior and leading to aggressive. Today on [id number] evaluation, the patient presented very irritable. On presentation, he becomes easily agitated and refuses to be interviewed reporting "who are you." When attempting to validate, I discussed wanting to become more agitated and then refuses to be interviewed. MENTAL STATUS EXAMINATION: Still distraught, overwhelmed, irritable, agitated, impulsive. ASSESSMENT AND PLAN: The patient is a 56-year-old male who presents very unpredictable, result in aggressive behavior. We will continue with primary psychiatrist's treatment plan and goal which includes Seroquel 100 mg p.o. t.i.d., risperidone 3 mg p.o. b.i.d. and Haldol as needed for acute agitation, due to the patient's active impulsive and aggressive behavior, he is unable to formulate safe plan. We will continue with current psychiatric treatment plan and goals. We will monitor for any side effects to the medications. JOB# [id number]
--- NOTE | 2017-05-22 08:47 | General Progress Note ---
Subjective - Review of Systems Events since last encounter: irritable agitated in no distress Objective - Physical Exam Vitals and I&O: Vital Signs Temp 98.5 F 05/22/17 06:33 Pulse 90 05/22/17 06:33 Resp 20 05/22/17 06:33 BP 118/75 05/22/17 06:33 Pulse Ox 98 05/22/17 06:33 Intake & Output 05/21/17 05/22/17 05/22/17 18:59 06:59 18:59 Intake Total 1500 120 Balance 1500 120 Intake: Oral 1500 120 Other: # Voids 4 3 Stool Characteristics [place] Active Medications: Current Medications Acetaminophen (Tylenol) 650 mg PO Q4H PRN PRN Reason: Mild Pain/Headache/T above 101 Stop: 07/12/17 16:25 Last Admin: 05/21/17 11:21 Dose: 650 mg Acetaminophen/Hydrocodone Bitart ([place] 5mg/325mg) 1 tab PO Q6H PRN PRN Reason: Abdominal Pain Stop: 07/18/17 12:40 Last Admin: 05/20/17 09:30 Dose: 1 tab Al Hydrox/Mg Hydrox/Simethicone (Maalox) 30 ml PO DAILY PRN PRN Reason: GI DISTRESS Stop: 07/12/17 18:43 Docusate Sodium (Colace) 250 mg PO DAILY [facility] Stop: 07/13/17 08:59 Last Admin: 05/21/17 09:37 Dose: 250 mg Folic Acid (Folate) 1 mg PO DAILY [facility] Stop: 07/13/17 08:59 Last Admin: 05/21/17 09:37 Dose: 1 mg Haloperidol (Haldol) 5 mg PO Q6HR PRN; Protocol PRN Reason: Agitation Stop: 07/12/17 18:43 Last Admin: 05/21/17 09:37 Dose: 5 mg Lorazepam (Ativan) 0.5 mg PO Q4H PRN PRN Reason: Anxiety/Agitation Stop: 07/19/17 08:25 Magnesium Hydroxide (Milk Of Magnesia) 30 ml PO DAILY PRN PRN Reason: Constipation Stop: 07/12/17 16:25 Last Admin: 05/14/17 23:43 Dose: 30 ml Metoprolol Tartrate (Lopressor) 50 mg PO BID [facility] Stop: 07/13/17 08:59 Last Admin: 05/21/17 17:51 Dose: 50 mg Multivitamins/Vitamin C (Theragran) 1 tab PO DAILY [facility] Stop: 07/13/17 08:59 Last Admin: 05/21/17 09:37 Dose: 1 tab Nicotine (Nicotine Transdermal System) 21 mg TD DAILY [facility] Stop: 07/13/17 08:59 Last Admin: 05/21/17 09:37 Dose: Not Given Ondansetron HCl (Zofran Odt) 4 mg PO Q6H PRN PRN Reason: Nausea / Vomiting Stop: 07/14/17 00:03 Last Admin: 05/15/17 00:41 Dose: 4 mg Psyllium Hydrophilic Mucilloid (Metamucil) 1 pkt PO BID [facility] Stop: 07/13/17 08:59 Last Admin: 05/21/17 17:51 Dose: 1 pkt Quetiapine Fumarate (Seroquel) 100 mg PO TID [facility] PRN Reason: Protocol Stop: 07/19/17 07:12 Last Admin: 05/21/17 22:01 Dose: 100 mg Risperidone (Risperdal) 3 mg PO BID [facility] Stop: 07/19/17 08:59 Last Admin: 05/21/17 17:51 Dose: 3 mg Sodium Phosphate (Fleet Enema) 135 ml RC PRN PRN PRN Reason: Constipation Stop: 07/12/17 18:43 Trazodone HCl (Desyrel) 25 mg PO HS PRN; Protocol PRN Reason: Insomnia Stop: 07/12/17 18:43 Last Admin: 05/21/17 22:02 Dose: 25 mg Valproate Sodium (Depakene) 750 mg PO Q12H [facility] PRN Reason: Protocol Stop: 07/21/17 08:59 Zolpidem Tartrate (Ambien) 5 mg PO HS PRN PRN Reason: Insomnia Stop: 07/12/17 16:25 Last Admin: 05/20/17 21:44 Dose: 5 mg Assessment/Plan - Problem List Patient Problems: All Active Problems Aggression (Acute) R45.89 Confusion (Acute) R41.0 HTN (hypertension) (Acute) I10
[2017-05-22] MEDS: Multivitamin Tab PO SCH (09:02)
[2017-05-22] MEDS: Nicotine 21 mg/24 hr Tdm TD SCH (09:36)
--- NOTE | 2017-05-22 18:44 | Progress Notes ---
DATE: The patient was seen and evaluated. The patient's chart reviewed. Nursing staff reported that the patient continues to be extremely impulsive and also very disengaged in unit and continues to be a 1:1. Today on [id number] evaluation, the patient refuses to be easily becoming very irritable and agitated as he was sleeping, attempted to validate his emotions . The patient becomes more irritable. On examination distraught, overwhelmed, irritable, impulsive and unpredictable. ASSESSMENT AND PLAN: A 56-year-old male with a history of unpredictable behavior, resulting in aggressive behavior, unable to formulate the plan. We will continue with primary psychiatrist treatment plan and goals, which include Seroquel 100 mg p.o. t.i.d., risperidone and continue allowing the primary psychiatrist to continue adjusting and cross titrating the medications, unclear which medications will be cross titrated off at this point. JOB# [id number]
[2017-05-23] MEDS: Multivitamin Tab PO SCH (08:23)
[2017-05-23] MEDS: Nicotine 21 mg/24 hr Tdm TD SCH (08:33)
--- NOTE | 2017-05-23 12:40 | Internal Medicine Prog Note ---
Internal Medicine Subjective - Subjective Service Date: 05/23/17 Patient is:: awake, verbal Per staff patient has:: tolerating meds Internal Medicine Objective - Physical Exam Vitals and I&O: Vital Signs Temp 97.4 F 05/22/17 15:27 Pulse 117 05/23/17 08:26 Resp 18 05/22/17 15:27 BP 122/73 05/23/17 08:26 Pulse Ox 94 05/22/17 15:27 Intake & Output 05/22/17 05/23/17 05/23/17 18:59 06:59 18:59 Intake Total 1500 240 Balance 1500 240 Intake: Oral 1500 240 Other: # Voids 4 3 Stool Characteristics Brown Brown Soft Formed Active Medications: Current Medications Acetaminophen (Tylenol) 650 mg PO Q4H PRN PRN Reason: Mild Pain/Headache/T above 101 Stop: 07/12/17 16:25 Last Admin: 05/22/17 20:58 Dose: 650 mg Acetaminophen/Hydrocodone Bitart ([place] 5mg/325mg) 1 tab PO Q6H PRN PRN Reason: Abdominal Pain Stop: 07/18/17 12:40 Last Admin: 05/20/17 09:30 Dose: 1 tab Al Hydrox/Mg Hydrox/Simethicone (Maalox) 30 ml PO DAILY PRN PRN Reason: GI DISTRESS Stop: 07/12/17 18:43 Docusate Sodium (Colace) 250 mg PO DAILY [facility] Stop: 07/13/17 08:59 Last Admin: 05/23/17 08:22 Dose: 250 mg Folic Acid (Folate) 1 mg PO DAILY [facility] Stop: 07/13/17 08:59 Last Admin: 05/23/17 08:22 Dose: 1 mg Haloperidol (Haldol) 5 mg PO Q6HR PRN; Protocol PRN Reason: Agitation Stop: 07/12/17 18:43 Last Admin: 05/21/17 09:37 Dose: 5 mg Lorazepam (Ativan) 0.5 mg PO Q4H PRN PRN Reason: Anxiety/Agitation Stop: 07/19/17 08:25 Last Admin: 05/23/17 11:10 Dose: 0.5 mg Magnesium Hydroxide (Milk Of Magnesia) 30 ml PO DAILY PRN PRN Reason: Constipation Stop: 07/12/17 16:25 Last Admin: 05/14/17 23:43 Dose: 30 ml Metoprolol Tartrate (Lopressor) 50 mg PO BID [facility] Stop: 07/13/17 08:59 Last Admin: 05/23/17 08:26 Dose: 50 mg Multivitamins/Vitamin C (Theragran) 1 tab PO DAILY [facility] Stop: 07/13/17 08:59 Last Admin: 05/23/17 08:23 Dose: 1 tab Nicotine (Nicotine Transdermal System) 21 mg TD DAILY [facility] Stop: 07/13/17 08:59 Last Admin: 05/23/17 08:33 Dose: Not Given Ondansetron HCl (Zofran Odt) 4 mg PO Q6H PRN PRN Reason: Nausea / Vomiting Stop: 07/14/17 00:03 Last Admin: 05/23/17 11:09 Dose: 4 mg Psyllium Hydrophilic Mucilloid (Metamucil) 1 pkt PO BID [facility] Stop: 07/13/17 08:59 Last Admin: 05/23/17 08:23 Dose: 1 pkt Quetiapine Fumarate (Seroquel) 100 mg PO TID [facility] PRN Reason: Protocol Stop: 07/19/17 07:12 Last Admin: 05/23/17 08:23 Dose: 100 mg Risperidone (Risperdal) 3 mg PO BID [facility] Stop: 07/19/17 08:59 Last Admin: 05/23/17 08:23 Dose: 3 mg Sodium Phosphate (Fleet Enema) 135 ml RC PRN PRN PRN Reason: Constipation Stop: 07/12/17 18:43 Trazodone HCl (Desyrel) 25 mg PO HS PRN; Protocol PRN Reason: Insomnia Stop: 07/12/17 18:43 Last Admin: 05/21/17 22:02 Dose: 25 mg Valproate Sodium (Depakene) 750 mg PO Q12H [facility] PRN Reason: Protocol Stop: 07/21/17 08:59 Last Admin: 05/23/17 08:21 Dose: 750 mg Zolpidem Tartrate (Ambien) 5 mg PO HS PRN PRN Reason: Insomnia Stop: 07/12/17 16:25 Last Admin: 05/22/17 20:58 Dose: 5 mg General: alert HEENT: NC/AT, PERRLA Neck: Supple Lungs: CTAB Cardiovascular: RRR, Normal S1, Normal S2 Abdomen: soft, non-tender Neurological: alert Internal Medicine Assmt/Plan - Assessment Assessment: psychosis anemia htn seizure anxiety nicotine abuse - Plan Plan: smoking cessation continue current orders
--- NOTE | 2017-05-23 23:45 | Progress Notes ---
DATE: 05/23/[address] Taylor. SUBJECTIVE: Case was discussed with staff of the patient, reviewed records. This is a 56-year-old male who was admitted on 05/13/2017 because of aggressive behavior. The patient apparently was very compulsive yesterday. Primary psychiatrist had noted that the patient can be demented, irritable and unpredictable leading to aggression. The patient was aggressive over the weekend, easily agitated and refuses to be interviewed. The patient was on one-to-one yesterday; however, he was taken one-to-one. However, it is too early to discharge the patient at this point, so he apparently will be going to a nursing facility. He is on Seroquel 100 mg 3 times a day, Risperdal 3 mg twice a day with meals, trazodone 50 mg at bedtime with no side effects, no sedation, no nausea, no extrapyramidal symptoms and he is also on Depakote 750 mg twice a day. I will be checking his Depakote level. PLAN: We will continue to work with the patient in group therapy, milieu therapy, adjust the medication as needed. JOB# [id number]
[2017-05-24] MEDS: Multivitamin Tab PO SCH (08:46)
[2017-05-24] MEDS: Nicotine 21 mg/24 hr Tdm TD SCH (08:47)
--- NOTE | 2017-05-24 15:15 | Internal Medicine Prog Note ---
Internal Medicine Subjective - Subjective Service Date: 05/24/17 Patient is:: awake, verbal Per staff patient has:: tolerating meds Internal Medicine Objective - Results Recent Labs: Laboratory Last Values Valproic Acid 69.2 ug/mL (50.0-100.0) 05/23/17 12:12 - Physical Exam Vitals and I&O: Vital Signs Temp 0 F 05/24/17 06:16 Pulse 131 05/24/17 08:42 Resp 20 05/23/17 20:08 BP 143/67 05/24/17 08:42 Pulse Ox 96 05/23/17 20:08 Intake & Output 05/23/17 05/24/17 05/24/17 18:59 06:59 18:59 Intake Total 1300 480 Output Total 900 Balance 400 480 Intake: Oral 1300 480 Output: Stool 900 Other: # Voids 5 3 # Bowel Movements 0 Stool Characteristics Soft Formed Active Medications: Current Medications Acetaminophen (Tylenol) 650 mg PO Q4H PRN PRN Reason: Mild Pain/Headache/T above 101 Stop: 07/12/17 16:25 Last Admin: 05/23/17 13:48 Dose: 650 mg Acetaminophen/Hydrocodone Bitart ([place] 5mg/325mg) 1 tab PO Q6H PRN PRN Reason: Abdominal Pain Stop: 07/18/17 12:40 Last Admin: 05/20/17 09:30 Dose: 1 tab Al Hydrox/Mg Hydrox/Simethicone (Maalox) 30 ml PO DAILY PRN PRN Reason: GI DISTRESS Stop: 07/12/17 18:43 Docusate Sodium (Colace) 250 mg PO DAILY [facility] Stop: 07/13/17 08:59 Last Admin: 05/24/17 08:42 Dose: 250 mg Folic Acid (Folate) 1 mg PO DAILY [facility] Stop: 07/13/17 08:59 Last Admin: 05/24/17 08:46 Dose: 1 mg Haloperidol (Haldol) 5 mg PO Q6HR PRN; Protocol PRN Reason: Agitation Stop: 07/12/17 18:43 Last Admin: 05/21/17 09:37 Dose: 5 mg Lorazepam (Ativan) 0.5 mg PO Q4H PRN PRN Reason: Anxiety/Agitation Stop: 07/19/17 08:25 Last Admin: 05/23/17 11:10 Dose: 0.5 mg Magnesium Hydroxide (Milk Of Magnesia) 30 ml PO DAILY PRN PRN Reason: Constipation Stop: 07/12/17 16:25 Last Admin: 05/14/17 23:43 Dose: 30 ml Metoprolol Tartrate (Lopressor) 50 mg PO BID [facility] Stop: 07/13/17 08:59 Last Admin: 05/24/17 08:42 Dose: 50 mg Multivitamins/Vitamin C (Theragran) 1 tab PO DAILY [facility] Stop: 07/13/17 08:59 Last Admin: 05/24/17 08:46 Dose: 1 tab Nicotine (Nicotine Transdermal System) 21 mg TD DAILY [facility] Stop: 07/13/17 08:59 Last Admin: 05/24/17 08:47 Dose: Not Given Ondansetron HCl (Zofran Odt) 4 mg PO Q6H PRN PRN Reason: Nausea / Vomiting Stop: 07/14/17 00:03 Last Admin: 05/23/17 11:09 Dose: 4 mg Psyllium Hydrophilic Mucilloid (Metamucil) 1 pkt PO BID [facility] Stop: 07/13/17 08:59 Last Admin: 05/24/17 08:47 Dose: 1 pkt Quetiapine Fumarate (Seroquel) 100 mg PO TID [facility] PRN Reason: Protocol Stop: 07/19/17 07:12 Last Admin: 05/24/17 13:59 Dose: 100 mg Risperidone (Risperdal) 3 mg PO BID [facility] Stop: 07/19/17 08:59 Last Admin: 05/24/17 08:46 Dose: 3 mg Sodium Phosphate (Fleet Enema) 135 ml RC PRN PRN PRN Reason: Constipation Stop: 07/12/17 18:43 Trazodone HCl (Desyrel) 25 mg PO HS PRN; Protocol PRN Reason: Insomnia Stop: 07/12/17 18:43 Last Admin: 05/23/17 20:59 Dose: 25 mg Valproate Sodium (Depakene) 750 mg PO Q12H [facility] PRN Reason: Protocol Stop: 07/21/17 08:59 Last Admin: 05/24/17 08:41 Dose: 750 mg Zolpidem Tartrate (Ambien) 5 mg PO HS PRN PRN Reason: Insomnia Stop: 07/12/17 16:25 Last Admin: 05/23/17 20:59 Dose: 5 mg General: alert HEENT: NC/AT, PERRLA Neck: Supple Lungs: CTAB Cardiovascular: RRR, Normal S1, Normal S2 Abdomen: soft, non-tender Neurological: alert Internal Medicine Assmt/Plan - Assessment Assessment: psychosis anemia htn seizure anxiety nicotine abuse - Plan Plan: smoking cessation continue current orders Nutritional Asmnt/Malnutr-PDOC - Dietary Evaluation Malnutrition Findings (Please click <Entered> for more info): Nutritional Asmnt/Malnutrition Start: 05/24/17 11: 50 Text: Status: Complete Freq: Document 05/24/17 11:50 LCANA PAULA (Rec: 05/24/17 12:00 [email or web address] [email or web address]) Nutritional Asmnt/Malnutrition Patient General Information Nutritional Screening Low Risk Diagnosis increased agitated Pertinent Medical Hx/Surgical Hx seizure, HTN Subjective Information Per records, PO intake 100% Current Diet Order/ Nutrition Support regular Pertinent Medications colace, folate, theragran, seroquel Pertinent Labs no nutrition related labs Nutritional Hx/Data Height 5 ft 6 in Height (Calculated Centimeters) 167.6 Current Weight (lbs) 173 lb Weight (Calculated Kilograms) 78.5 Weight (Calculated Grams) 51868.5 [place] Body Weight 142 Body Mass Index (BMI) 27.9 Weight Status Overweight GI Symptoms GI Symptoms None Last BM 05/14 Skin Integrity/Comment: Three non-intact skin areas, inferior to colostomy site. Generalized erythema around colostomy site. per wound care notes Estimated Nutritional Goals BEE in Kcals: Adj wt of IBW Calories/Kcals/Kg 25-30 based on adj wt 68kg Kcals Calculated 9364-9079 Protein: Adj wt of IBW Protein g/k Protein Calculated 68 Fluid: ml 1700-2040ml (1ml/kcal) Nutritional Problem 1. Problem Problem increased nutrition needs ( protein) Etiology increased metabolic demand for wound healing Signs/Symptoms: three non-intact skin area to colostomy site Intervention/Recommendation Comments 1. Continue with current diet as ordered. 2. Monitor PO intake, wt, labs and skin integrity 3. F/U as low risk in 7 days, 3/6 Expected Outcomes/Goals Expected Outcomes/Goals 1. PO intake continue to meet at least 75% of nutritional needs. 2. Wt stability, skin to heal
[2017-05-24] MEDS: Hydrocodone/APAP 5mg/325mg Tab PO PRN (20:15)
--- NOTE | 2017-05-24 22:18 | Progress Notes ---
DATE: 05/24/[address] Taylor. Case was discussed with staff of the patient. The patient's agitation is a bit improving. He is sleeping better, eating better. He denies that he is aware of any intent to harm anybody or himself. Continues to have poor insight. He will be going to a jail upon discharge. No side effects of the medications, no sedation or nausea and extrapyramidal symptoms. We will continue to work with the patient in group therapy, milieu therapy, and adjust medications as needed. JOB# [id number]
[2017-05-25] MEDS: Multivitamin Tab PO SCH (08:48)
[2017-05-25] MEDS: Nicotine 21 mg/24 hr Tdm TD SCH (08:49)
--- NOTE | 2017-05-25 14:00 | Internal Medicine Prog Note ---
Internal Medicine Subjective - Subjective Service Date: 05/25/17 Patient is:: awake, verbal Per staff patient has:: tolerating meds Internal Medicine Objective - Results Recent Labs: Laboratory Last Values Valproic Acid 69.2 ug/mL (50.0-100.0) 05/23/17 12:12 - Physical Exam Vitals and I&O: Vital Signs Temp 97.6 F 05/24/17 20:20 Pulse 99 05/25/17 09:00 Resp 20 05/24/17 20:20 BP 125/69 05/25/17 09:00 Pulse Ox 96 05/24/17 20:20 Intake & Output 05/24/17 05/25/17 05/25/17 18:59 06:59 18:59 Intake Total 900 480 Balance 900 480 Intake: Oral 900 480 Other: # Voids 4 2 # Bowel Movements 3 Active Medications: Current Medications Acetaminophen (Tylenol) 650 mg PO Q4H PRN PRN Reason: Mild Pain/Headache/T above 101 Stop: 07/12/17 16:25 Last Admin: 05/24/17 16:32 Dose: 650 mg Acetaminophen/Hydrocodone Bitart ([place] 5mg/325mg) 1 tab PO Q6H PRN PRN Reason: Abdominal Pain Stop: 07/18/17 12:40 Last Admin: 05/24/17 20:15 Dose: 1 tab Al Hydrox/Mg Hydrox/Simethicone (Maalox) 30 ml PO DAILY PRN PRN Reason: GI DISTRESS Stop: 07/12/17 18:43 Docusate Sodium (Colace) 250 mg PO DAILY [facility] Stop: 07/13/17 08:59 Last Admin: 05/25/17 08:46 Dose: 250 mg Folic Acid (Folate) 1 mg PO DAILY [facility] Stop: 07/13/17 08:59 Last Admin: 05/25/17 08:46 Dose: 1 mg Haloperidol (Haldol) 5 mg PO Q6HR PRN; Protocol PRN Reason: Agitation Stop: 07/12/17 18:43 Last Admin: 05/21/17 09:37 Dose: 5 mg Lorazepam (Ativan) 0.5 mg PO Q4H PRN PRN Reason: Anxiety/Agitation Stop: 07/19/17 08:25 Last Admin: 05/24/17 16:21 Dose: 0.5 mg Magnesium Hydroxide (Milk Of Magnesia) 30 ml PO DAILY PRN PRN Reason: Constipation Stop: 07/12/17 16:25 Last Admin: 05/14/17 23:43 Dose: 30 ml Metoprolol Tartrate (Lopressor) 50 mg PO BID [facility] Stop: 07/13/17 08:59 Last Admin: 05/25/17 09:00 Dose: 50 mg Multivitamins/Vitamin C (Theragran) 1 tab PO DAILY [facility] Stop: 07/13/17 08:59 Last Admin: 05/25/17 08:48 Dose: 1 tab Nicotine (Nicotine Transdermal System) 21 mg TD DAILY [facility] Stop: 07/13/17 08:59 Last Admin: 05/25/17 08:49 Dose: Not Given Ondansetron HCl (Zofran Odt) 4 mg PO Q6H PRN PRN Reason: Nausea / Vomiting Stop: 07/14/17 00:03 Last Admin: 05/24/17 16:24 Dose: 4 mg Psyllium Hydrophilic Mucilloid (Metamucil) 1 pkt PO BID [facility] Stop: 07/13/17 08:59 Last Admin: 05/25/17 08:49 Dose: 1 pkt Quetiapine Fumarate (Seroquel) 100 mg PO TID [facility] PRN Reason: Protocol Stop: 07/19/17 07:12 Last Admin: 05/25/17 13:52 Dose: 100 mg Risperidone (Risperdal) 3 mg PO BID [facility] Stop: 07/19/17 08:59 Last Admin: 05/25/17 08:48 Dose: 3 mg Sodium Phosphate (Fleet Enema) 135 ml RC PRN PRN PRN Reason: Constipation Stop: 07/12/17 18:43 Trazodone HCl (Desyrel) 25 mg PO HS PRN; Protocol PRN Reason: Insomnia Stop: 07/12/17 18:43 Last Admin: 05/24/17 20:15 Dose: 25 mg Valproate Sodium (Depakene) 750 mg PO Q12H [facility] PRN Reason: Protocol Stop: 07/21/17 08:59 Last Admin: 05/25/17 08:46 Dose: 750 mg Zolpidem Tartrate (Ambien) 5 mg PO HS PRN PRN Reason: Insomnia Stop: 07/12/17 16:25 Last Admin: 05/23/17 20:59 Dose: 5 mg General: alert HEENT: NC/AT, PERRLA Neck: Supple Lungs: CTAB Cardiovascular: RRR, Normal S1, Normal S2 Abdomen: soft, non-tender Neurological: alert Internal Medicine Assmt/Plan - Assessment Assessment: psychosis anemia htn seizure anxiety nicotine abuse - Plan Plan: smoking cessation continue current orders Nutritional Asmnt/Malnutr-PDOC - Dietary Evaluation Malnutrition Findings (Please click <Entered> for more info): Nutritional Asmnt/Malnutrition Start: 05/24/17 11: 50 Text: Status: Complete Freq: Document 05/24/17 11:[address] [facility] (Rec: 05/24/17 12:00 HEN [email or web address]) Nutritional Asmnt/Malnutrition Patient General Information Nutritional Screening Low Risk Diagnosis increased agitated Pertinent Medical Hx/Surgical Hx seizure, HTN Subjective Information Per records, PO intake 100% Current Diet Order/ Nutrition Support regular Pertinent Medications colace, folate, theragran, seroquel Pertinent Labs no nutrition related labs Nutritional Hx/Data Height 5 ft 6 in Height (Calculated Centimeters) 167.6 Current Weight (lbs) 173 lb Weight (Calculated Kilograms) 78.5 Weight (Calculated Grams) 20657.5 [place] Body Weight 142 Body Mass Index (BMI) 27.9 Weight Status Overweight GI Symptoms GI Symptoms None Last BM 05/14 Skin Integrity/Comment: Three non-intact skin areas, inferior to colostomy site. Generalized erythema around colostomy site. per wound care notes Estimated Nutritional Goals BEE in Kcals: Adj wt of IBW Calories/Kcals/Kg 25-30 based on adj wt 68kg Kcals Calculated 8554-7590 Protein: Adj wt of IBW Protein g/k Protein Calculated 68 Fluid: ml 1700-2040ml (1ml/kcal) Nutritional Problem 1. Problem Problem increased nutrition needs ( protein) Etiology increased metabolic demand for wound healing Signs/Symptoms: three non-intact skin area to colostomy site Intervention/Recommendation Comments 1. Continue with current diet as ordered. 2. Monitor PO intake, wt, labs and skin integrity 3. F/U as low risk in 7 days, 3/6 Expected Outcomes/Goals Expected Outcomes/Goals 1. PO intake continue to meet at least 75% of nutritional needs. 2. Wt stability, skin to heal
--- NOTE | 2017-05-25 21:35 | Progress Notes ---
DATE: SUBJECTIVE: Chart reviewed and the patient interviewed. Also discussed the patient's condition with the staff and reviewed records and labs. The patient is still agitated and he is still in irritable mood, but slightly easier to redirect him. The patient seems to be slightly less aggressive. He is still wandering around the unit. The patient also is compliant with taking his medications with no side effects of medications. ASSESSMENT: The patient is less psychotic and less agitated. TREATMENT PLAN: Continue current medications. Also, continue to work on behavioral modification. Also, there was a form needed to be filled for placement of the patient and that was done today. At the same time, we will continue monitoring his behavior and also continue to work on discharge plans. JOB# [id number]
[2017-05-26] MEDS: Multivitamin Tab PO SCH (09:37)
[2017-05-26] MEDS: Nicotine 21 mg/24 hr Tdm TD SCH (09:42)
--- NOTE | 2017-05-26 18:55 | Internal Medicine Prog Note ---
Internal Medicine Subjective - Subjective Patient is:: awake, verbal Per staff patient has:: tolerating meds Internal Medicine Objective - Results Recent Labs: Laboratory Last Values Valproic Acid 69.2 ug/mL (50.0-100.0) 05/23/17 12:12 - Physical Exam Vitals and I&O: Vital Signs Temp 97.4 F 05/26/17 06:21 Pulse 96 05/26/17 17:05 Resp 20 05/26/17 06:21 BP 122/78 05/26/17 17:05 Pulse Ox 97 05/26/17 06:21 Intake & Output 05/25/17 05/26/17 05/26/17 18:59 06:59 18:59 Intake Total 900 1120 1200 Balance 900 1120 1200 Intake: Oral 900 1120 1200 Other: # Voids 4 3 4 Stool Characteristics Soft Active Medications: Current Medications Acetaminophen (Tylenol) 650 mg PO Q4H PRN PRN Reason: Mild Pain/Headache/T above 101 Stop: 07/12/17 16:25 Last Admin: 05/26/17 17:04 Dose: 650 mg Acetaminophen/Hydrocodone Bitart ([place] 5mg/325mg) 1 tab PO Q6H PRN PRN Reason: Abdominal Pain Stop: 07/18/17 12:40 Last Admin: 05/24/17 20:15 Dose: 1 tab Al Hydrox/Mg Hydrox/Simethicone (Maalox) 30 ml PO DAILY PRN PRN Reason: GI DISTRESS Stop: 07/12/17 18:43 Docusate Sodium (Colace) 250 mg PO DAILY [facility] Stop: 07/13/17 08:59 Last Admin: 05/26/17 09:35 Dose: 250 mg Folic Acid (Folate) 1 mg PO DAILY [facility] Stop: 07/13/17 08:59 Last Admin: 05/26/17 09:37 Dose: 1 mg Haloperidol (Haldol) 5 mg PO Q6HR PRN; Protocol PRN Reason: Agitation Stop: 07/12/17 18:43 Last Admin: 05/26/17 12:05 Dose: 5 mg Lorazepam (Ativan) 0.5 mg PO Q4H PRN PRN Reason: Anxiety/Agitation Stop: 07/19/17 08:25 Last Admin: 05/26/17 14:17 Dose: 0.5 mg Magnesium Hydroxide (Milk Of Magnesia) 30 ml PO DAILY PRN PRN Reason: Constipation Stop: 07/12/17 16:25 Last Admin: 05/14/17 23:43 Dose: 30 ml Metoprolol Tartrate (Lopressor) 50 mg PO BID [facility] Stop: 07/13/17 08:59 Last Admin: 05/26/17 17:05 Dose: 50 mg Multivitamins/Vitamin C (Theragran) 1 tab PO DAILY [facility] Stop: 07/13/17 08:59 Last Admin: 05/26/17 09:37 Dose: 1 tab Nicotine (Nicotine Transdermal System) 21 mg TD DAILY [facility] Stop: 07/13/17 08:59 Last Admin: 05/26/17 09:42 Dose: 21 mg Ondansetron HCl (Zofran Odt) 4 mg PO Q6H PRN PRN Reason: Nausea / Vomiting Stop: 07/14/17 00:03 Last Admin: 05/24/17 16:24 Dose: 4 mg Psyllium Hydrophilic Mucilloid (Metamucil) 1 pkt PO BID [facility] Stop: 07/13/17 08:59 Last Admin: 05/26/17 17:06 Dose: 1 pkt Quetiapine Fumarate (Seroquel) 150 mg PO TID [facility] PRN Reason: Protocol Stop: 07/25/17 07:03 Last Admin: 05/26/17 14:17 Dose: 150 mg Risperidone (Risperdal) 3 mg PO BID [facility] Stop: 07/19/17 08:59 Last Admin: 05/26/17 17:05 Dose: 3 mg Sodium Phosphate (Fleet Enema) 135 ml RC PRN PRN PRN Reason: Constipation Stop: 07/12/17 18:43 Trazodone HCl (Desyrel) 25 mg PO HS PRN; Protocol PRN Reason: Insomnia Stop: 07/12/17 18:43 Last Admin: 05/25/17 20:17 Dose: 25 mg Valproate Sodium (Depakene) 750 mg PO Q12H [facility] PRN Reason: Protocol Stop: 07/21/17 08:59 Last Admin: 05/26/17 09:38 Dose: 750 mg Zolpidem Tartrate (Ambien) 5 mg PO HS PRN PRN Reason: Insomnia Stop: 07/12/17 16:25 Last Admin: 05/23/17 20:59 Dose: 5 mg General: alert HEENT: NC/AT, PERRLA Neck: Supple Lungs: CTAB Cardiovascular: RRR, Normal S1, Normal S2 Abdomen: soft, non-tender Neurological: alert Nutritional Asmnt/Malnutr-PDOC - Dietary Evaluation Malnutrition Findings (Please click <Entered> for more info): Nutritional Asmnt/Malnutrition Start: 05/24/17 11: 50 Text: Status: Complete Freq: Document 05/24/17 11:50 [facility] (Rec: 05/24/17 12:00 LCANA PAULA [email or web address]) Nutritional Asmnt/Malnutrition Patient General Information Nutritional Screening Low Risk Diagnosis increased agitated Pertinent Medical Hx/Surgical Hx seizure, HTN Subjective Information Per records, PO intake 100% Current Diet Order/ Nutrition Support regular Pertinent Medications colace, folate, theragran, seroquel Pertinent Labs no nutrition related labs Nutritional Hx/Data Height 1.68 m Height (Calculated Centimeters) 167.6 Current Weight (lbs) 78.471 kg Weight (Calculated Kilograms) 78.5 Weight (Calculated Grams) 03761.5 [place] Body Weight 142 Body Mass Index (BMI) 27.9 Weight Status Overweight GI Symptoms GI Symptoms None Last BM 05/14 Skin Integrity/Comment: Three non-intact skin areas, inferior to colostomy site. Generalized erythema around colostomy site. per wound care notes Estimated Nutritional Goals BEE in Kcals: Adj wt of IBW Calories/Kcals/Kg 25-30 based on adj wt 68kg Kcals Calculated 0960-4019 Protein: Adj wt of IBW Protein g/k Protein Calculated 68 Fluid: ml 1700-2040ml (1ml/kcal) Nutritional Problem 1. Problem Problem increased nutrition needs ( protein) Etiology increased metabolic demand for wound healing Signs/Symptoms: three non-intact skin area to colostomy site Intervention/Recommendation Comments 1. Continue with current diet as ordered. 2. Monitor PO intake, wt, labs and skin integrity 3. F/U as low risk in 7 days, 3/6 Expected Outcomes/Goals Expected Outcomes/Goals 1. PO intake continue to meet at least 75% of nutritional needs. 2. Wt stability, skin to heal
--- NOTE | 2017-05-26 20:38 | Progress Notes ---
DATE: 05/26/2017 SUBJECTIVE: Chart reviewed and the patient interviewed. Also, discussed the patient's condition with the staff and reviewed records and labs. The patient is extremely agitated and he is still in angry and in irritable moods. The patient also still seems to be suspicious and paranoid, but his affect is brighter. The patient also is restless and he is having mood swings. Otherwise, the patient is compliant with taking his medications with no side effects of medications. ASSESSMENT: The patient is still agitated and case manager specialist is still working for placement. TREATMENT PLAN: We will continue monitoring his behavior closely. Also, we will continue Risperdal and Seroquel, but will increase Seroquel to 150 mg 3 times a day. Also, will work on discharge plans and placement issue and will continue to follow up. JOB# [id number]
[2017-05-27] MEDS: Multivitamin Tab PO SCH (08:24)
[2017-05-27] MEDS: Nicotine 21 mg/24 hr Tdm TD SCH (08:47)
--- NOTE | 2017-05-27 11:17 | General Progress Note ---
Subjective - Review of Systems Events since last encounter: patient agitated in no acute distress Objective - Results Recent Labs: Laboratory Last Values Valproic Acid 69.2 ug/mL (50.0-100.0) 05/23/17 12:12 - Physical Exam Vitals and I&O: Vital Signs Temp 97.6 F 05/26/17 20:00 Pulse 132 05/27/17 08:47 Resp 20 05/26/17 20:00 BP 123/63 05/27/17 08:47 Pulse Ox 97 05/26/17 20:00 Intake & Output 05/26/17 05/27/17 05/27/17 18:59 06:59 18:59 Intake Total 1200 Balance 1200 Intake: Oral 1200 Other: # Voids 4 Stool Characteristics Soft Liquid Active Medications: Current Medications Acetaminophen (Tylenol) 650 mg PO Q4H PRN PRN Reason: Mild Pain/Headache/T above 101 Stop: 07/12/17 16:25 Last Admin: 05/26/17 17:04 Dose: 650 mg Acetaminophen/Hydrocodone Bitart ([place] 5mg/325mg) 1 tab PO Q6H PRN PRN Reason: Abdominal Pain Stop: 07/18/17 12:40 Last Admin: 05/24/17 20:15 Dose: 1 tab Al Hydrox/Mg Hydrox/Simethicone (Maalox) 30 ml PO DAILY PRN PRN Reason: GI DISTRESS Stop: 07/12/17 18:43 Docusate Sodium (Colace) 250 mg PO DAILY [facility] Stop: 07/13/17 08:59 Last Admin: 05/27/17 08:24 Dose: 250 mg Folic Acid (Folate) 1 mg PO DAILY [facility] Stop: 07/13/17 08:59 Last Admin: 05/27/17 08:24 Dose: 1 mg Haloperidol (Haldol) 5 mg PO Q6HR PRN; Protocol PRN Reason: Agitation Stop: 07/12/17 18:43 Last Admin: 05/27/17 08:24 Dose: 5 mg Lorazepam (Ativan) 0.5 mg PO Q4H PRN PRN Reason: Anxiety/Agitation Stop: 07/19/17 08:25 Last Admin: 05/27/17 08:25 Dose: 0.5 mg Magnesium Hydroxide (Milk Of Magnesia) 30 ml PO DAILY PRN PRN Reason: Constipation Stop: 07/12/17 16:25 Last Admin: 05/14/17 23:43 Dose: 30 ml Metoprolol Tartrate (Lopressor) 50 mg PO BID [facility] Stop: 07/13/17 08:59 Last Admin: 05/27/17 08:47 Dose: 50 mg Multivitamins/Vitamin C (Theragran) 1 tab PO DAILY [facility] Stop: 07/13/17 08:59 Last Admin: 05/27/17 08:24 Dose: 1 tab Nicotine (Nicotine Transdermal System) 21 mg TD DAILY [facility] Stop: 07/13/17 08:59 Last Admin: 05/27/17 08:47 Dose: Not Given Ondansetron HCl (Zofran Odt) 4 mg PO Q6H PRN PRN Reason: Nausea / Vomiting Stop: 07/14/17 00:03 Last Admin: 05/24/17 16:24 Dose: 4 mg Psyllium Hydrophilic Mucilloid (Metamucil) 1 pkt PO BID [facility] Stop: 07/13/17 08:59 Last Admin: 05/27/17 08:24 Dose: 1 pkt Quetiapine Fumarate (Seroquel) 150 mg PO TID [facility] PRN Reason: Protocol Stop: 07/25/17 07:03 Last Admin: 05/27/17 08:24 Dose: 150 mg Risperidone (Risperdal) 3 mg PO BID [facility] Stop: 07/19/17 08:59 Last Admin: 05/27/17 08:24 Dose: 3 mg Sodium Phosphate (Fleet Enema) 135 ml RC PRN PRN PRN Reason: Constipation Stop: 07/12/17 18:43 Trazodone HCl (Desyrel) 25 mg PO HS PRN; Protocol PRN Reason: Insomnia Stop: 07/12/17 18:43 Last Admin: 05/26/17 21:42 Dose: 25 mg Valproate Sodium (Depakene) 750 mg PO Q12H [facility] PRN Reason: Protocol Stop: 07/21/17 08:59 Last Admin: 05/27/17 08:19 Dose: 750 mg Zolpidem Tartrate (Ambien) 5 mg PO HS PRN PRN Reason: Insomnia Stop: 07/12/17 16:25 Last Admin: 05/23/17 20:59 Dose: 5 mg Assessment/Plan - Problem List Patient Problems: All Active Problems Aggression (Acute) R45.89 Confusion (Acute) R41.0 HTN (hypertension) (Acute) I10 - Plan Plan: placement planning Nutritional Asmnt/Malnutr-PDOC - Dietary Evaluation Malnutrition Findings (Please click <Entered> for more info): Nutritional Asmnt/Malnutrition Start: 05/24/17 11: 50 Text: Status: Complete Freq: Document 05/24/17 11:50 FLOWER (Rec: 05/24/17 12:00 FLOWER [email or web address]) Nutritional Asmnt/Malnutrition Patient General Information Nutritional Screening Low Risk Diagnosis increased agitated Pertinent Medical Hx/Surgical Hx seizure, HTN Subjective Information Per records, PO intake 100% Current Diet Order/ Nutrition Support regular Pertinent Medications colace, folate, theragran, seroquel Pertinent Labs no nutrition related labs Nutritional Hx/Data Height 1.68 m Height (Calculated Centimeters) 167.6 Current Weight (lbs) 78.471 kg Weight (Calculated Kilograms) 78.5 Weight (Calculated Grams) [address] [place] Body Weight 142 Body Mass Index (BMI) 27.9 Weight Status Overweight GI Symptoms GI Symptoms None Last BM 05/14 Skin Integrity/Comment: Three non-intact skin areas, inferior to colostomy site. Generalized erythema around colostomy site. per wound care notes Estimated Nutritional Goals BEE in Kcals: Adj wt of IBW Calories/Kcals/Kg 25-30 based on adj wt 68kg Kcals Calculated 8482-9728 Protein: Adj wt of IBW Protein g/k Protein Calculated 68 Fluid: ml 1700-2040ml (1ml/kcal) Nutritional Problem 1. Problem Problem increased nutrition needs ( protein) Etiology increased metabolic demand for wound healing Signs/Symptoms: three non-intact skin area to colostomy site Intervention/Recommendation Comments 1. Continue with current diet as ordered. 2. Monitor PO intake, wt, labs and skin integrity 3. F/U as low risk in 7 days, 3/6 Expected Outcomes/Goals Expected Outcomes/Goals 1. PO intake continue to meet at least 75% of nutritional needs. 2. Wt stability, skin to heal
--- NOTE | 2017-05-28 01:19 | Progress Notes ---
DATE: 05/27/[address] Taylor. Case was discussed with staff of the patient, reviewed records. The patient continues to have episodes of agitation. Continues to have episodes of being angry, irritable, restless, mood swings. He is compliant with the medication with no side effects. Dr. Taylor increased his Seroquel dose yesterday and he is also on Risperdal. We will continue to work with the patient. No side effects, no sedation, no nausea, no extrapyramidal symptoms and we will continue the patient in group therapy, milieu therapy, adjust medication as needed. JOB# [id number]
[2017-05-28] MEDS: Multivitamin Tab PO SCH (08:54)
[2017-05-28] MEDS: Nicotine 21 mg/24 hr Tdm TD SCH (08:59)
--- NOTE | 2017-05-28 12:30 | General Progress Note ---
Subjective - Review of Systems Events since last encounter: still irritable in no acute distress Objective - Results Recent Labs: Laboratory Last Values Valproic Acid 69.2 ug/mL (50.0-100.0) 05/23/17 12:12 - Physical Exam Vitals and I&O: Vital Signs Temp 97.6 F 05/26/17 20:00 Pulse 85 05/28/17 08:54 Resp 20 05/26/17 20:00 BP 131/69 05/28/17 08:54 Pulse Ox 97 05/26/17 20:00 Intake & Output 05/27/17 05/28/17 05/28/17 18:59 06:59 18:59 Intake Total 1200 Balance 1200 Intake: Oral 1200 Other: # Voids 4 Stool Characteristics Soft Soft Soft Brown Active Medications: Current Medications Acetaminophen (Tylenol) 650 mg PO Q4H PRN PRN Reason: Mild Pain/Headache/T above 101 Stop: 07/12/17 16:25 Last Admin: 05/28/17 08:54 Dose: 650 mg Acetaminophen/Hydrocodone Bitart ([place] 5mg/325mg) 1 tab PO Q6H PRN PRN Reason: Abdominal Pain Stop: 07/18/17 12:40 Last Admin: 05/24/17 20:15 Dose: 1 tab Al Hydrox/Mg Hydrox/Simethicone (Maalox) 30 ml PO DAILY PRN PRN Reason: GI DISTRESS Stop: 07/12/17 18:43 Docusate Sodium (Colace) 250 mg PO DAILY [facility] Stop: 07/13/17 08:59 Last Admin: 05/28/17 08:55 Dose: 250 mg Folic Acid (Folate) 1 mg PO DAILY [facility] Stop: 07/13/17 08:59 Last Admin: 05/28/17 08:55 Dose: 1 mg Haloperidol (Haldol) 5 mg PO Q6HR PRN; Protocol PRN Reason: Agitation Stop: 07/12/17 18:43 Last Admin: 05/28/17 09:08 Dose: 5 mg Lorazepam (Ativan) 0.5 mg PO Q4H PRN PRN Reason: Anxiety/Agitation Stop: 07/19/17 08:25 Last Admin: 05/28/17 09:08 Dose: 0.5 mg Magnesium Hydroxide (Milk Of Magnesia) 30 ml PO DAILY PRN PRN Reason: Constipation Stop: 07/12/17 16:25 Last Admin: 05/14/17 23:43 Dose: 30 ml Metoprolol Tartrate (Lopressor) 50 mg PO BID [facility] Stop: 07/13/17 08:59 Last Admin: 05/28/17 08:54 Dose: 50 mg Multivitamins/Vitamin C (Theragran) 1 tab PO DAILY [facility] Stop: 07/13/17 08:59 Last Admin: 05/28/17 08:54 Dose: 1 tab Nicotine (Nicotine Transdermal System) 21 mg TD DAILY [facility] Stop: 07/13/17 08:59 Last Admin: 05/28/17 08:59 Dose: Not Given Ondansetron HCl (Zofran Odt) 4 mg PO Q6H PRN PRN Reason: Nausea / Vomiting Stop: 07/14/17 00:03 Last Admin: 05/24/17 16:24 Dose: 4 mg Psyllium Hydrophilic Mucilloid (Metamucil) 1 pkt PO BID [facility] Stop: 07/13/17 08:59 Last Admin: 05/28/17 08:54 Dose: 1 pkt Quetiapine Fumarate (Seroquel) 150 mg PO TID [facility] PRN Reason: Protocol Stop: 07/25/17 07:03 Last Admin: 05/28/17 08:54 Dose: 150 mg Risperidone (Risperdal) 3 mg PO BID [facility] Stop: 07/19/17 08:59 Last Admin: 05/28/17 08:54 Dose: 3 mg Sodium Phosphate (Fleet Enema) 135 ml RC PRN PRN PRN Reason: Constipation Stop: 07/12/17 18:43 Trazodone HCl (Desyrel) 25 mg PO HS PRN; Protocol PRN Reason: Insomnia Stop: 07/12/17 18:43 Last Admin: 05/26/17 21:42 Dose: 25 mg Valproate Sodium (Depakene) 750 mg PO Q12H [facility] PRN Reason: Protocol Stop: 07/21/17 08:59 Last Admin: 05/28/17 08:53 Dose: 750 mg Zolpidem Tartrate (Ambien) 5 mg PO HS PRN PRN Reason: Insomnia Stop: 07/12/17 16:25 Last Admin: 05/27/17 21:44 Dose: 5 mg Assessment/Plan - Problem List Patient Problems: All Active Problems Aggression (Acute) R45.89 Confusion (Acute) R41.0 HTN (hypertension) (Acute) I10 - Plan Plan: placement planning Nutritional Asmnt/Malnutr-PDOC - Dietary Evaluation Malnutrition Findings (Please click <Entered> for more info): Nutritional Asmnt/Malnutrition Start: 05/24/17 11: 50 Text: Status: Complete Freq: Document 05/24/17 11:50 FLOWER (Rec: 05/24/17 12:00 FLOWER [email or web address]) Nutritional Asmnt/Malnutrition Patient General Information Nutritional Screening Low Risk Diagnosis increased agitated Pertinent Medical Hx/Surgical Hx seizure, HTN Subjective Information Per records, PO intake 100% Current Diet Order/ Nutrition Support regular Pertinent Medications colace, folate, theragran, seroquel Pertinent Labs no nutrition related labs Nutritional Hx/Data Height 1.68 m Height (Calculated Centimeters) 167.6 Current Weight (lbs) 78.471 kg Weight (Calculated Kilograms) 78.5 Weight (Calculated Grams) 45252.5 [place] Body Weight 142 Body Mass Index (BMI) 27.9 Weight Status Overweight GI Symptoms GI Symptoms None Last BM 05/14 Skin Integrity/Comment: Three non-intact skin areas, inferior to colostomy site. Generalized erythema around colostomy site. per wound care notes Estimated Nutritional Goals BEE in Kcals: Adj wt of IBW Calories/Kcals/Kg 25-30 based on adj wt 68kg Kcals Calculated 2904-7334 Protein: Adj wt of IBW Protein g/k Protein Calculated 68 Fluid: ml 1700-2040ml (1ml/kcal) Nutritional Problem 1. Problem Problem increased nutrition needs ( protein) Etiology increased metabolic demand for wound healing Signs/Symptoms: three non-intact skin area to colostomy site Intervention/Recommendation Comments 1. Continue with current diet as ordered. 2. Monitor PO intake, wt, labs and skin integrity 3. F/U as low risk in 7 days, 3/6 Expected Outcomes/Goals Expected Outcomes/Goals 1. PO intake continue to meet at least 75% of nutritional needs. 2. Wt stability, skin to heal
[2017-05-28] MEDS: risperiDONE 4 mg Tab PO SCH (16:23)
--- NOTE | 2017-05-28 17:46 | Progress Notes ---
DATE: 05/28/[address] Taylor. Case discussed with staff of the patient, reviewed records. The patient was hearing voices this morning, he said they are not his and apparently they have been telling him to do bad things. However, he is not hearing voices that when I was talking to him, he said ____ earlier. I will be increasing his Risperdal to 4 mg twice a day and so far he is still at risk for discharge because of the above. No side effects with the medication, no sedation, no nausea, no extrapyramidal symptoms. He is also on Seroquel. We will continue to work with the patient in group therapy, milieu therapy, adjust medication as needed. JOB# [id number]
[2017-05-29] MEDS: Nicotine 21 mg/24 hr Tdm TD SCH (08:03)
[2017-05-29] MEDS: Multivitamin Tab PO SCH (08:30)
[2017-05-29] MEDS: risperiDONE 4 mg Tab PO SCH ×3 (08:30→17:08)
--- NOTE | 2017-05-29 13:46 | General Progress Note ---
Subjective - Review of Systems Events since last encounter: patient awake still hearing voices in no acute distress Objective - Results Recent Labs: Laboratory Last Values Valproic Acid 69.2 ug/mL (50.0-100.0) 05/23/17 12:12 - Physical Exam Vitals and I&O: Vital Signs Temp 98.1 F 05/29/17 06:35 Pulse 102 05/29/17 08:30 Resp 19 05/29/17 06:35 BP 134/76 05/29/17 08:30 Pulse Ox 96 05/29/17 06:35 Intake & Output 05/28/17 05/29/17 05/29/17 18:59 06:59 18:59 Intake Total 1500 960 Balance 1500 960 Intake: Oral 1500 960 Other: # Voids 4 1 Stool Characteristics Soft Soft Soft Brown Brown Active Medications: Current Medications Acetaminophen (Tylenol) 650 mg PO Q4H PRN PRN Reason: Mild Pain/Headache/T above 101 Stop: 07/12/17 16:25 Last Admin: 05/29/17 09:02 Dose: 650 mg Acetaminophen/Hydrocodone Bitart ([place] 5mg/325mg) 1 tab PO Q6H PRN PRN Reason: Abdominal Pain Stop: 07/18/17 12:40 Last Admin: 05/24/17 20:15 Dose: 1 tab Al Hydrox/Mg Hydrox/Simethicone (Maalox) 30 ml PO DAILY PRN PRN Reason: GI DISTRESS Stop: 07/12/17 18:43 Docusate Sodium (Colace) 250 mg PO DAILY [facility] Stop: 07/13/17 08:59 Last Admin: 05/29/17 08:30 Dose: 250 mg Folic Acid (Folate) 1 mg PO DAILY [facility] Stop: 07/13/17 08:59 Last Admin: 05/29/17 08:30 Dose: 1 mg Haloperidol (Haldol) 5 mg PO Q6HR PRN; Protocol PRN Reason: Agitation Stop: 07/12/17 18:43 Last Admin: 05/29/17 09:02 Dose: 5 mg Lorazepam (Ativan) 0.5 mg PO Q4H PRN PRN Reason: Anxiety/Agitation Stop: 07/19/17 08:25 Last Admin: 05/29/17 09:02 Dose: 0.5 mg Magnesium Hydroxide (Milk Of Magnesia) 30 ml PO DAILY PRN PRN Reason: Constipation Stop: 07/12/17 16:25 Last Admin: 05/14/17 23:43 Dose: 30 ml Metoprolol Tartrate (Lopressor) 50 mg PO BID [facility] Stop: 07/13/17 08:59 Last Admin: 05/29/17 08:30 Dose: 50 mg Multivitamins/Vitamin C (Theragran) 1 tab PO DAILY [facility] Stop: 07/13/17 08:59 Last Admin: 05/29/17 08:30 Dose: 1 tab Nicotine (Nicotine Transdermal System) 21 mg TD DAILY [facility] Stop: 07/13/17 08:59 Last Admin: 05/29/17 08:03 Dose: Not Given Ondansetron HCl (Zofran Odt) 4 mg PO Q6H PRN PRN Reason: Nausea / Vomiting Stop: 07/14/17 00:03 Last Admin: 05/24/17 16:24 Dose: 4 mg Psyllium Hydrophilic Mucilloid (Metamucil) 1 pkt PO BID [facility] Stop: 07/13/17 08:59 Last Admin: 05/29/17 08:30 Dose: 1 pkt Quetiapine Fumarate (Seroquel) 150 mg PO TID [facility] PRN Reason: Protocol Stop: 07/25/17 07:03 Last Admin: 05/29/17 13:21 Dose: 150 mg Risperidone (Risperdal) 4 mg PO BID [facility] Stop: 07/27/17 16:59 Last Admin: 05/29/17 08:30 Dose: 4 mg Sodium Phosphate (Fleet Enema) 135 ml RC PRN PRN PRN Reason: Constipation Stop: 07/12/17 18:43 Trazodone HCl (Desyrel) 25 mg PO HS PRN; Protocol PRN Reason: Insomnia Stop: 07/12/17 18:43 Last Admin: 05/26/17 21:42 Dose: 25 mg Valproate Sodium (Depakene) 750 mg PO Q12H [facility] PRN Reason: Protocol Stop: 07/21/17 08:59 Last Admin: 05/29/17 08:29 Dose: 750 mg Zolpidem Tartrate (Ambien) 5 mg PO HS PRN PRN Reason: Insomnia Stop: 07/12/17 16:25 Last Admin: 05/28/17 22:08 Dose: 5 mg Assessment/Plan - Problem List Patient Problems: All Active Problems Aggression (Acute) R45.89 Confusion (Acute) R41.0 HTN (hypertension) (Acute) I10 - Plan Plan: placement planning Nutritional Asmnt/Malnutr-PDOC - Dietary Evaluation Malnutrition Findings (Please click <Entered> for more info): Nutritional Asmnt/Malnutrition Start: 05/24/17 11: 50 Text: Status: Complete Freq: Document 05/24/17 11:50 FLOWER (Rec: 05/24/17 12:00 LCANA PAULA [email or web address]) Nutritional Asmnt/Malnutrition Patient General Information Nutritional Screening Low Risk Diagnosis increased agitated Pertinent Medical Hx/Surgical Hx seizure, HTN Subjective Information Per records, PO intake 100% Current Diet Order/ Nutrition Support regular Pertinent Medications colace, folate, theragran, seroquel Pertinent Labs no nutrition related labs Nutritional Hx/Data Height 1.68 m Height (Calculated Centimeters) 167.6 Current Weight (lbs) 78.471 kg Weight (Calculated Kilograms) 78.5 Weight (Calculated Grams) 46439.5 [place] Body Weight 142 Body Mass Index (BMI) 27.9 Weight Status Overweight GI Symptoms GI Symptoms None Last BM 05/14 Skin Integrity/Comment: Three non-intact skin areas, inferior to colostomy site. Generalized erythema around colostomy site. per wound care notes Estimated Nutritional Goals BEE in Kcals: Adj wt of IBW Calories/Kcals/Kg 25-30 based on adj wt 68kg Kcals Calculated 6931-5692 Protein: Adj wt of IBW Protein g/k Protein Calculated 68 Fluid: ml 1700-2040ml (1ml/kcal) Nutritional Problem 1. Problem Problem increased nutrition needs ( protein) Etiology increased metabolic demand for wound healing Signs/Symptoms: three non-intact skin area to colostomy site Intervention/Recommendation Comments 1. Continue with current diet as ordered. 2. Monitor PO intake, wt, labs and skin integrity 3. F/U as low risk in 7 days, 3/6 Expected Outcomes/Goals Expected Outcomes/Goals 1. PO intake continue to meet at least 75% of nutritional needs. 2. Wt stability, skin to heal
--- NOTE | 2017-05-29 23:08 | Progress Notes ---
DATE: 05/29/2017 Case was discussed with staff of the patient, reviewed records. The patient today is more redirectable. He reports he is not hearing voices today. He has been sleeping better and eating better. He is compliant with the medication with no side effects, no sedation, no nausea, and no extrapyramidal symptoms. Risperdal was increased to 4 mg twice a day and he is on Seroquel as well. We will continue to work with the patient in group therapy, milieu therapy, and adjust the medications as needed. JOB# [id number]
--- NOTE | 2017-05-30 09:38 | General Progress Note ---
Subjective - Review of Systems Events since last encounter: patient awake in no acute distress withdrawn Objective - Results Recent Labs: Laboratory Last Values Valproic Acid 69.2 ug/mL (50.0-100.0) 05/23/17 12:12 - Physical Exam Vitals and I&O: Vital Signs Temp 99.5 F 05/29/17 19:59 Pulse 90 05/29/17 19:59 Resp 20 05/29/17 19:59 BP 105/62 05/29/17 19:59 Pulse Ox 95 05/29/17 19:59 Intake & Output 05/29/17 05/30/17 05/30/17 18:59 06:59 18:59 Other: Stool Characteristics Soft Soft Brown Active Medications: Current Medications Acetaminophen (Tylenol) 650 mg PO Q4H PRN PRN Reason: Mild Pain/Headache/T above 101 Stop: 07/12/17 16:25 Last Admin: 05/29/17 17:33 Dose: 650 mg Acetaminophen/Hydrocodone Bitart ([place] 5mg/325mg) 1 tab PO Q6H PRN PRN Reason: Abdominal Pain Stop: 07/18/17 12:40 Last Admin: 05/24/17 20:15 Dose: 1 tab Al Hydrox/Mg Hydrox/Simethicone (Maalox) 30 ml PO DAILY PRN PRN Reason: GI DISTRESS Stop: 07/12/17 18:43 Docusate Sodium (Colace) 250 mg PO DAILY [facility] Stop: 07/13/17 08:59 Last Admin: 05/29/17 08:30 Dose: 250 mg Folic Acid (Folate) 1 mg PO DAILY [facility] Stop: 07/13/17 08:59 Last Admin: 05/29/17 08:30 Dose: 1 mg Haloperidol (Haldol) 5 mg PO Q6HR PRN; Protocol PRN Reason: Agitation Stop: 07/12/17 18:43 Last Admin: 05/29/17 09:02 Dose: 5 mg Lorazepam (Ativan) 0.5 mg PO Q4H PRN PRN Reason: Anxiety/Agitation Stop: 07/19/17 08:25 Last Admin: 05/29/17 09:02 Dose: 0.5 mg Magnesium Hydroxide (Milk Of Magnesia) 30 ml PO DAILY PRN PRN Reason: Constipation Stop: 07/12/17 16:25 Last Admin: 05/14/17 23:43 Dose: 30 ml Metoprolol Tartrate (Lopressor) 50 mg PO BID [facility] Stop: 07/13/17 08:59 Last Admin: 05/29/17 17:08 Dose: 50 mg Multivitamins/Vitamin C (Theragran) 1 tab PO DAILY [facility] Stop: 07/13/17 08:59 Last Admin: 05/29/17 08:30 Dose: 1 tab Nicotine (Nicotine Transdermal System) 21 mg TD DAILY [facility] Stop: 07/13/17 08:59 Last Admin: 05/29/17 08:03 Dose: Not Given Ondansetron HCl (Zofran Odt) 4 mg PO Q6H PRN PRN Reason: Nausea / Vomiting Stop: 07/14/17 00:03 Last Admin: 05/24/17 16:24 Dose: 4 mg Psyllium Hydrophilic Mucilloid (Metamucil) 1 pkt PO BID [facility] Stop: 07/13/17 08:59 Last Admin: 05/29/17 17:08 Dose: 1 pkt Quetiapine Fumarate (Seroquel) 150 mg PO TID [facility] PRN Reason: Protocol Stop: 07/25/17 07:03 Last Admin: 05/29/17 21:55 Dose: 150 mg Risperidone (Risperdal) 4 mg PO BID [facility] Stop: 07/27/17 16:59 Last Admin: 05/29/17 17:08 Dose: 4 mg Sodium Phosphate (Fleet Enema) 135 ml RC PRN PRN PRN Reason: Constipation Stop: 07/12/17 18:43 Trazodone HCl (Desyrel) 25 mg PO HS PRN; Protocol PRN Reason: Insomnia Stop: 07/12/17 18:43 Last Admin: 05/26/17 21:42 Dose: 25 mg Valproate Sodium (Depakene) 750 mg PO Q12H [facility] PRN Reason: Protocol Stop: 07/21/17 08:59 Last Admin: 05/29/17 21:57 Dose: 750 mg Zolpidem Tartrate (Ambien) 5 mg PO HS PRN PRN Reason: Insomnia Stop: 07/12/17 16:25 Last Admin: 05/29/17 21:56 Dose: 5 mg Assessment/Plan - Problem List Patient Problems: All Active Problems Aggression (Acute) R45.89 Confusion (Acute) R41.0 HTN (hypertension) (Acute) I10 - Plan Plan: placement planning Nutritional Asmnt/Malnutr-PDOC - Dietary Evaluation Malnutrition Findings (Please click <Entered> for more info): Nutritional Asmnt/Malnutrition Start: 05/24/17 11: 50 Text: Status: Complete Freq: Document 05/24/17 11:50 FLOWER (Rec: 05/24/17 12:00 FLOWER [email or web address]) Nutritional Asmnt/Malnutrition Patient General Information Nutritional Screening Low Risk Diagnosis increased agitated Pertinent Medical Hx/Surgical Hx seizure, HTN Subjective Information Per records, PO intake 100% Current Diet Order/ Nutrition Support regular Pertinent Medications colace, folate, theragran, seroquel Pertinent Labs no nutrition related labs Nutritional Hx/Data Height 1.68 m Height (Calculated Centimeters) 167.6 Current Weight (lbs) 78.471 kg Weight (Calculated Kilograms) 78.5 Weight (Calculated Grams) 77493.5 [place] Body Weight 142 Body Mass Index (BMI) 27.9 Weight Status Overweight GI Symptoms GI Symptoms None Last BM 05/14 Skin Integrity/Comment: Three non-intact skin areas, inferior to colostomy site. Generalized erythema around colostomy site. per wound care notes Estimated Nutritional Goals BEE in Kcals: Adj wt of IBW Calories/Kcals/Kg 25-30 based on adj wt 68kg Kcals Calculated 7147-7343 Protein: Adj wt of IBW Protein g/k Protein Calculated 68 Fluid: ml 1700-2040ml (1ml/kcal) Nutritional Problem 1. Problem Problem increased nutrition needs ( protein) Etiology increased metabolic demand for wound healing Signs/Symptoms: three non-intact skin area to colostomy site Intervention/Recommendation Comments 1. Continue with current diet as ordered. 2. Monitor PO intake, wt, labs and skin integrity 3. F/U as low risk in 7 days, 3/6 Expected Outcomes/Goals Expected Outcomes/Goals 1. PO intake continue to meet at least 75% of nutritional needs. 2. Wt stability, skin to heal
[2017-05-30] MEDS: risperiDONE 4 mg Tab PO SCH ×2 (09:43→16:50)
[2017-05-30] MEDS: Multivitamin Tab PO SCH (09:43)
[2017-05-30] MEDS: Nicotine 21 mg/24 hr Tdm TD SCH (09:45)
--- NOTE | 2017-05-30 23:05 | Progress Notes ---
DATE: 05/30/2017 SUBJECTIVE: Chart reviewed and the patient interviewed. Also discussed the patient's condition with the staff and reviewed records and labs. The patient is still restless and is still agitated and in irritable mood. The patient also still needs redirections and needs close monitoring. Also, still unable to provide any safe plan for self-care. Otherwise, the patient is compliant with taking medications with no side effects of medications. ASSESSMENT: The patient is still confused and considered to be gravely disabled and needs placement. TREATMENT PLAN: We will continue monitoring his behavior and his condition closely. Also, continue adjusting psychotropic medications and followup. JOB# [id number]
[2017-05-31] MEDS: risperiDONE 4 mg Tab PO SCH (09:14)
[2017-05-31] MEDS: Multivitamin Tab PO SCH (09:14)
[2017-05-31] MEDS: Nicotine 21 mg/24 hr Tdm TD SCH (09:17)
--- NOTE | 2017-05-31 16:20 | Progress Notes ---
DATE: 05/31/2017 SUBJECTIVE: Chart reviewed and the patient interviewed. Also discussed the patient's condition with the staff and reviewed records and labs. The patient is still irritable and anxious. The patient also is still having episodes of anger and irritability, but slightly easier to redirect him. He also is easier to follow directions. The patient denies any intention to harm himself or others. He also has no side effects of medications. ASSESSMENT: The patient is calmer and he is waiting for placement and seems that [facility] did find placement for the patient. PLAN: Plan is to discharge the patient today with outpatient treatment and followup. JOB# [id number]
--- NOTE | 2017-06-01 18:19 | Discharge Summary ---
DATE OF DISCHARGE: 05/31/2017 HOSPITAL COURSE: The patient is well known to me from [place]. The patient is known to have history of underlying psychosis. The patient was very aggressive. He was sent to [facility], was admitted for that and also patient has history of anemia, hypertension, seizures and history of nicotine dependence and anxiety. The patient was treated for all of that. The patient improved. The patient is in stable condition on 08/28/2016. The patient was sent back to the [facility] where I will be following the patient. MEDICATIONS: See the reconciliation sheet. ACTIVITY: As tolerated a 2 g sodium diet. CONDITION AT TIME OF DISCHARGE: Stable. JOB# [id number]
== END 2017-05-31 15:50 | DRG 885 ==
LOC: GERO 15:59 → GERO2 05-27 00:14
PROVIDERS: ADMIT Psychiatry & Neurology Psychiatry; ATTEND Psychiatry & Neurology Psychiatry
DX: F29 Unspecified psychosis not due to a substance or known physiological condition (principal); Z93.3 Colostomy status; R56.9 Unspecified convulsions; D64.9 Anemia, unspecified; R41.0 Disorientation, unspecified; I10 Essential (primary) hypertension; F41.9 Anxiety disorder, unspecified; F17.210 Nicotine dependence, cigarettes, uncomplicated
CPT/HCPCS: 36415-UA; 80164-TC; 90899; G0410; J1200; J1630; J2060; J3230; Q0162; Z7610